=== PATIENT | male | born 1955 | race Caucasian/White ===

== ENCOUNTER 2016-06-18 10:59 | Day surgery (SDC) | payer OTHER ==
[2016-06-13 13:16] VITALS: BMI 24.3
[2016-06-18] MEDS ORDERED: MIDAZOLAM HCL 2 MG/2 ML SINGLE DOSE VIAL ONE (13:21)
[2016-06-18] MEDS ORDERED: HYDROmorphone HCL/PF 1 MG/ML VIAL (FOR PYXIS CHARGING ONLY) ONE (14:01)
[2016-06-18] MEDS ORDERED: ONDANSETRON 4 MG/2 ML VIAL IVPUSH PRN (15:28)
[2016-06-18] MEDS ORDERED: oxyCODONE HCL 5 MG TABLET PO PRN ×2 (15:28)
[2016-06-18] MEDS ORDERED: LACTATED RINGERS SOLUTION 1,000 ML IV SCH (15:30)
[2016-06-18] MEDS ORDERED: ONDANSETRON 4 MG/2 ML VIAL ONE (15:47)
[2016-06-18 16:37] VITALS: TEMP 97.8
[2016-06-18] MEDS ORDERED: oxyCODONE HCL 5 MG TABLET ONE (16:49)
[2016-06-18 17:08] VITALS: BP 142/65; PULSE 84
--- NOTE | 2016-06-19 17:47 | OP ---
DATE OF OPERATION: 06/18/2016 PREOPERATIVE DIAGNOSES: 1. Right distal triceps rupture. 2. Right olecranon bursitis with olecranon bone spurs. POSTOPERATIVE DIAGNOSES: 1. Right distal triceps rupture. 2. Right olecranon bursitis with olecranon bone spurs. OPERATIVE PROCEDURES: 1. Right distal triceps repair. 2. Right olecranon bursectomy and debridement of olecranon spurs. SURGEON: Mallory Chen MD FOREST RANGER TECHNICIAN: NATHANIEL Norton ANESTHESIA: General. COMPLICATIONS: None. ESTIMATED BLOOD LOSS: Minimal. INDICATIONS FOR PROCEDURE: The patient is a 61-year-old male with the above findings, indicated for operative treatment. Risks, benefits, and alternatives were discussed with the patient at length. Proper informed consent was obtained. DESCRIPTION OF PROCEDURE: After proper identification of the patient and the correct operative site, the patient was brought to the operating room and placed supine on the operating table. All prominences were well padded. General anesthesia was provided by the anesthesiologist. Intravenous antibiotics were given. A timeout procedure was performed. Patient was placed into the lateral decubitus position, in a carreno bag positioner with an axillary roll placed and all points of contact well padded. Inline cervical position was maintained throughout the procedure. Right upper extremity was prepped and draped in usual sterile fashion. A well-padded tourniquet was placed over a sterile prep. An Esmarch bandage was used to exsanguinate the right upper extremity. Tourniquet was inflated to 250 mmHg. A curvilinear incision was made over the dorsal aspect of the elbow. Incision was taken sharply through the skin with blunt and sharp dissection through subcutaneous tissues. An olecranon bursectomy was performed and bone spurs were removed off the olecranon process. A near-complete rupture of the distal triceps tendon was observed. Only a few fibers of the most lateral aspect of the triceps were attached and several deep fibers were also attached. The triceps had retracted several centimeters. It was easily reapproximated to the olecranon fossa and footprint of the triceps tendon. The tendon was then prepared by debriding it into healthy tissue. A triceps repair was then performed. This was accomplished by whip stitching two separate No. 2 FiberWire sutures up and down the distal triceps tendon in a locking fashion. This allowed for four distal strands of the FiberWire suture for repair. A shuttle suture was also passed in this same area. These sutures were all ending about 1 cm proximal to the distal aspect of the triceps tendon to accomplish a footprint-type repair. Two 2-mm drill holes were then placed from the footprint of the triceps tendon to the dorsal shaft of the ulna, taking care to keep these tunnels extraarticular. The sutures were then passed through the tunnels. The sutures were then re-looped through the triceps tendon, through the shuttle suture, and were allison-crossed at this point. This accomplished a footprint-type repair with approximately 1 cm of footprint of triceps attached to the insertion point. These sutures were then secured in a knotless fashion using a 4.7-mm SwiveLock anchor placed distal to the olecranon fossa and distal to the articular surface. This provided a secure, stable repair of the triceps tendon. The wound was irrigated with copious amounts of normal saline and repaired in layers using 3-0 Vicryl and skin carmen. Sterile dressings and a splint were placed. Patient was reversed from anesthesia and brought to recovery in stable condition. Armando Fuentes, the paraprofessional education assistant, was integral throughout this procedure. The procedure could not have been performed without a skilled operative paraprofessional education assistant. MALLORY CHEN M.D. [id number]
--- NOTE | 2016-06-20 16:17 | PATH ---
Surgical Pathology Report Patient Name: JULIO LEONG [facility]. Rec. #: [id number] /Age/Gender: 1955 (Age: 61) / M Account: [id number] Location: [facility] Taken: 06/18/2016 Received: 06/19/2016 Reported: 06/20/2016 Physicians: Chris Chen M.D. Specimen(s) Received OLECRANON BURSA RIGHT Clinical History Right elbow bursitis Final Diagnosis OLECRANON BURSA, RIGHT, BURSECTOMY: FIBROSYNOVIAL TISSUE SHOWING NECROSIS AND MARKED CHRONIC INFLAMMATION. Electronically Signed Chantelle Clarke M.D. Gross Description Received in formalin labeled "olecranon bursa right," is a 1.8 x 1.2 x 1.1 cm cho, irregular portion of soft tissue. The specimen is serially sectioned and entirely submitted in one cassette. /06/19/201606/19/2016
== END 2016-06-18 17:35 | disposition home or self-care (01) ==
LOC: FASU 10:59
PROVIDERS: ATTEND Orthopaedic Surgery Hand Surgery
PROC: 0LM30ZZ Reattachment of Right Upper Arm Tendon, Open Approach (ICD-10-PCS; principal; 2016-06-18 14:03)
PROC: 0MB30ZZ Excision of Right Elbow Bursa and Ligament, Open Approach (ICD-10-PCS; 2016-06-18 14:03)
DX: S46.311D Strain of muscle, fascia and tendon of triceps, right arm, subsequent encounter (principal); M70.21 Olecranon bursitis, right elbow; X58.XXXD Exposure to other specified factors, subsequent encounter; Y93.9 Activity, unspecified
CPT/HCPCS: 73070-TC-RT; 88304-TC; 94760

== ENCOUNTER 2019-01-16 08:03 | Emergency (ER) | payer OTHER ==
[2019-01-16 08:24] VITALS: BP 172/99; PULSE 93; TEMP 98; BMI 23.8
[2019-01-16 09:36] LABS: EPITHELIAL CELLS RARE /hpf
--- NOTE | 2019-01-16 09:54 | PDOC ---
History of Present Illness - General Chief Complaint: Urinary Problem Stated Complaint: BLOOD AFTER VOID Time Seen by Provider: 01/16/19 08:05 - History of Present Illness Initial Comments: 01/16/19 09:48 63-year-old male with no significant past medical history presents to the emergency department with hematuria. Patient reports noticing bright red blood in his urethra at the end of his urinary stream yesterday evening. He states he was holding it in for about 8 hours until he got home, and reports he was physically squeezing his penis at the time to prevent himself from having an accident. Once he arrived at home he was able to void in the kitchen sink. He reports his stream initially was normal and clear, but at the end he noted a few drops of bright red blood from his urethra. He also reported some burning and discomfort afterwards for a few hours. This morning when he woke up, he had another void, noted his urine to be lilo in color, also followed by a few drops of bright red blood in his urethra at the end of his stream, prompting him to come to the emergency department for further evaluation. Denies history of similar symptoms. He reports increased urgency when urinating since yesterday. He denies frequency. He denies fevers or chills. He denies any suprapubic or flank pain. Denies any recent unintended weight loss. He denies a history of smoking. Denies recent trauma to his penis. On review of systems, he denies any headaches, dizziness, focal weakness or numbness, chest pain, shortness of breath, abdominal pain, nausea, vomiting, diarrhea, lower extremity edema. He takes no medications on a daily basis. Past History - Past Medical History Allergies/Adverse Reactions: Allergies Allergy/AdvReac Type Severity Reaction Status Date / Time No Known Allergies Allergy Verified 01/16/19 08:04 Home Medications: Ambulatory Orders Sulfamethoxazole/Trimethoprim [Bactrim Ds Tablet] 1 each PO BID 14 Days #28 tablet 01/16/19 Anemia: No Asthma: No Cancer: No Cardiac Disorders: No CVA: No COPD: No CHF: No Dementia: No Diabetes: No GI Disorders: No Disorders: No HTN: No Hypercholesterolemia: No Liver Disease: No Seizures: No Thyroid Disease: No - Psycho Social/Smoking Cessation Hx Smoking History: Never smoked Have you smoked in the past 12 months: No Information on smoking cessation initiated: No Hx Alcohol Use: No Drug/Substance Use Hx: No Substance Use Type: None Hx Substance Use Treatment: No Review of Systems - Review of Systems Comments:: 01/16/19 09:54 GENERAL/CONSTITUTIONAL: No fever or chills. No weakness. HEAD, EYES, EARS, NOSE AND THROAT: No change in vision. No ear pain or discharge. No sore throat. GASTROINTESTINAL: No nausea, vomiting, diarrhea or constipation. GENITOURINARY: +dysuria, urgency, no frequency. +bleeding from urethra CARDIOVASCULAR: No chest pain or shortness of breath. RESPIRATORY: No cough, wheezing, or hemoptysis. MUSCULOSKELETAL: No joint or muscle swelling or pain. No neck or back pain. SKIN: No rash NEUROLOGIC: No headache, vertigo, loss of consciousness, or change in strength/ sensation. ENDOCRINE: No increased thirst. No abnormal weight change. HEMATOLOGIC/LYMPHATIC: No anemia, easy bleeding, or history of blood clots. ALLERGIC/IMMUNOLOGIC: No hives or skin allergy. *Physical Exam - Vital Signs Last Vital Signs Temp Pulse Resp BP Pulse Ox 98 F 93 H 20 172/99 H 100 01/16/19 08:04 01/16/19 08:04 01/16/19 08:04 01/16/19 08:04 01/16/19 08:04 - Physical Exam Comments: 01/16/19 09:54 GENERAL: Awake, alert, and fully oriented, in no acute distress EYES: PERRLA, EOMI, sclera anicteric, conjunctiva clear ENT: Moist mucosa NECK: Normal ROM, supple, no lymphadenopathy, JVD, or masses LUNGS: Breath sounds equal, clear to auscultation bilaterally. No wheezes, and no crackles HEART: Regular rate and rhythm, normal S1 and S2, no murmurs, rubs or gallops ABDOMEN: Soft, nontender, normoactive bowel sounds. No guarding, no rebound. No masses. No CVAT. : Normal external genitalia. No penile ttp. No injuries noted to penis or urethra. No blood at urethral meatus. No priapism or phimosis. EXTREMITIES: Normal range of motion, no edema. No cords, erythema, or tenderness NEUROLOGICAL: Normal speech, cranial nerves intact, equal strength and sensation b/l ED Treatment Course - ADDITIONAL ORDERS Additional order review: Laboratory Results 01/16/19 08:37 Urine Color Yellow Urine Appearance Slightly Urine pH 6.5 Urine Protein Trace Urine Glucose (UA) Negative Urine Ketones Negative Urine Blood 3+ H Urine Nitrite Negative Urine Bilirubin Negative Urine Urobilinogen 0.2 Ur Leukocyte Esterase Negative Urine RBC 40-60 Urine WBC 0-2 Ur Transition Epith Cell Rare Urine Bacteria Few Medical Decision Making - Medical Decision Making 01/16/19 09:56 63-year-old male presents the emergency department with hematuria at the end of his urinary stream accompanied with urgency and dysuria. Clinically presentation is most consistent with a UTI, as such we will treat with Bactrim twice a day for 14 days. After initial void for which a urinalysis was sent in the emergency department, patient had another void which he states was clear without bleeding at the end of his urinary stream. Either way, given complicated UTI, will refer pt to urology for further evaluation. Discussed with pt that he may need cystoscopy, especially if bleeding persists to r/o cancerous mass. Pt expresses understanding I discussed the physical exam findings, ancillary test results and final diagnoses with the patient. I answered all of the patient's questions. The patient was satisfied with the care received and felt comfortable with the discharge plan and treatment plan. The patient will call their primary care physician within 24 hours to arrange follow-up and will return to the Emergency Department with any new, persistent or worsening symptoms. Discharge - Discharge Information Problems reviewed: Yes Clinical Impression/Diagnosis: UTI symptoms, Hematuria, Urinary urgency Condition: Stable Disposition: HOME - Admission No - Additional Discharge Information Prescriptions: Sulfamethoxazole/Trimethoprim [Bactrim Ds Tablet] 1 each PO BID 14 Days #28 tablet - Follow up/Referral Referrals: Mohan Watkins MD [Staff Physician] - Joe Villar MD [Staff Physician] - Ari Lucero MD [Staff Physician] - - Patient Discharge Instructions Patient Printed Discharge Instructions: DI for Hematuria Additional Instructions: Take the antibiotics as prescribed, twice a day. A referral has been included for a urologist for follow-up. Call tomorrow to make an appointment within 1 week. Return to emergency department if you have any new, worsening or concerning symptoms. - Post Discharge Activity
== END 2019-01-16 10:04 | disposition home or self-care (01) ==
LOC: FER 08:03
DX: R39.15 Urgency of urination (principal); R31.9 Hematuria, unspecified; R68.89 Other general symptoms and signs
CPT/HCPCS: 81003; 81015; 87086; 99282-25

== ENCOUNTER 2019-01-27 10:11 | Day surgery (SDC) | payer OTHER ==
[2019-01-24 15:55] VITALS: BMI 24.0
[~2019-01-27 10:11] MED LIST: BUPIVACAINE HCL/PF 0.25% (2.5MG/ML) 10 ML VIAL IJ ONE
--- NOTE | 2019-01-27 10:20 | OP ---
Operative Note - Note: Operative Date: 01/27/19 Pre-Operative Diagnosis: Elbow bursitis ? Post-Operative Diagnosis: Same as Pre-op Surgeon: Fredrick De La Fuente Fly Finisher: Mindy Jaffe Anesthesia: General Operative Report Dictated: Yes
[2019-01-27] MEDS ORDERED: MIDAZOLAM HCL 2 MG/2 ML SINGLE DOSE VIAL ONE (13:07)
[2019-01-27] MEDS ORDERED: PROPOFOL 20 ML ONE ×2 (13:08→13:21)
[2019-01-27] MEDS ORDERED: ePHEDrine SULFATE 50 MG/1 ML AMPULE ONE (13:27)
[2019-01-27] MEDS ORDERED: GLYCOPYRROLATE 0.2 MG/1 ML VIAL ONE (13:31)
[2019-01-27] MEDS ORDERED: oxyCODONE HCL 5 MG TABLET PO PRN ×2 (13:54)
[2019-01-27] MEDS ORDERED: ONDANSETRON 4 MG/2 ML VIAL IVPUSH PRN (13:54)
[2019-01-27] MEDS ORDERED: ACETAMINOPHEN 325 MG TABLET (FP) PO PRN (13:54)
[2019-01-27] MEDS ORDERED: LACTATED RINGERS SOLUTION 1,000 ML IV SCH (14:00)
[2019-01-27] MEDS ORDERED: BUPIVACAINE HCL 0.25% 125 MG/50 ML VIAL ONE (14:13)
[2019-01-27] MEDS ORDERED: ONDANSETRON 4 MG/2 ML VIAL ONE (14:42)
[2019-01-27] MEDS ORDERED: KETOROLAC TROMETHAMINE 30 MG/1 ML VIAL ONE (14:42)
[2019-01-27] MEDS ORDERED: DEXAMETHASONE SOD PHOSPHATE 4 MG/1 ML VIAL ONE (14:42)
[2019-01-27] MEDS ORDERED: ACETAMINOPHEN 325 MG TABLET (FP) ONE (16:23)
[2019-01-27 17:17] VITALS: TEMP 97.6
[2019-01-27 18:51] VITALS: BP 133/82; PULSE 108
--- NOTE | 2019-01-27 18:51 | OP ---
DATE OF OPERATION: 01/27/2019 PREOPERATIVE DIAGNOSIS: Right elbow infectious bursitis. POSTOPERATIVE DIAGNOSIS: Right elbow likely osteomyelitis, infected bursitis versus sterile abscess. PROCEDURE: Right elbow irrigation and debridement, decompression of bone cyst, excision of deep implants, bone and soft tissue cultures. INDICATIONS: This is a 63-year-old gentleman who had previously underwent distal triceps repair. He has had multiple episodes of draining sinus from his left elbow and was indicated for surgical debridement. He had declined for some time as he was unable to take off from work but eventually decided to go ahead with surgery. Treatment options including continued nonoperative car versus operative care were reviewed. Operative risks were reviewed in detail including bleeding, persistent or spread infection, need for further surgery, postoperative pain and stiffness, triceps re-rupture or elbow fracture. We discussed medical risks such as heart attack, stroke, DVT, PE, and . We discussed that we would keep him on antibiotics following the procedure and adjust those based on his culture results. I addressed all of the patient's questions and concerns. He voiced understanding and elected to proceed. DESCRIPTION OF PROCEDURE: The patient was brought to the operating room where general anesthesia was administered. He was placed into a lazy lateral position at approximately 30 degrees of tilt to allow for access to the posterior elbow. The elbow was then draped across the body. The patient was then prepped and draped in the usual sterile fashion. A preoperative dose of antibiotics was given, and the usual time-out procedure was performed. On initial inspection of the elbow, there were 4 areas of either currently draining or previously draining sinus noted, 3 in the midportion of the olecranon region and 1 of them in line with the previous wound. Incision was now planned out along the previous operative incision ellipsing out the main sinus tract along the . This was sent for pathologic analysis. Electrocautery was used to maintain hemostasis. Blunt spreading was now carried down. The sinus over the wound tracked down to an area on the olecranon where a suture was seen to be inserting. This was debrided using a curette, rongeur as well as electrocautery. This was traced down to the entrance to the anchor hole. The suture was able to be pulled out of the anchor hole. This was along with 3 other suture ends. The peak portion of the anchor was now removed from the wound along with a collection of chalky, white liquid. Culture of this area was sent. Curettes including angled curettes were now passed throughout the cavity to ensure no further debris. Dissection was carried out more proximally, tracing along where the sutures were travelling. Sutures were identified travelling into the bone. They were then reidentified along the posterior aspect of the triceps and were in whipstitch fashion albeit buried under layers of scar tissue. Utilizing careful spreading dissection, the suture was freed of the surrounding soft tissue until all of the limbs of the suture were able to be fully removed from the patient. The dissection was now carried out along the bursa posteriorly over the olecranon. As the sinus tracts of the additional areas were encountered, the subcutaneous tissue was found to be quite friable. Small areas had to be excised due to the nonviability of the skin full thickness. After this debridement, as the skin was being retracted, 1 of the sinuses tore about the area by approximately 1.5 cm. This would be later repaired. The dissection was now carried further medially, more proximally where a firm nodule was palpable approximately 3 cm around the subcutaneous region. After spreading into this area, an additional pocket of somewhat chalky and purulent fluid was encountered. This too was evacuated. A rongeur was used to remove some of the lining to this collection. Again, cultures were sent from here. Cultures were also sent from the mid bursal portion where the sinus tracts were. Cultures were additionally sent from the area of the triceps where the sutures were passed. The wound was now copiously pulse lavaged including the bony cavity with 6 L of saline with bacitracin. The sinus tracts were now debrided and then closed using 4 nylon interrupted sutures. Despite their close proximity to the main portion of the wound, there did appear to be good circulation within the skin of these areas. The main wound was then closed using combination of mattress and simple 4-0 nylon suture. The patient was then placed into a well-padded splint in approximately 45 degrees of flexion. The patient was then extubated and transferred to recovery room in stable condition. JERAMIE DIXON M.D. [id number]
--- NOTE | 2019-02-07 11:42 | PATH ---
Surgical Pathology Report Patient Name: JULIO LEONG Med. Rec. #: [id number] /Age/Gender: 1955 (Age: 63) / M Account: [id number] Location: [facility] Taken: 01/27/2019 Received: 01/27/2019 Reported: 02/07/2019 Physicians: Fredrick De La Fuente M.D. Specimen(s) Received A: SINUS TRACT, RIGHT ELBOW B: EXPLANTED HARDWARE, RIGHT ELBOW Clinical History Right elbow bursitis Final Diagnosis A. SINUS TRACT, RIGHT ELBOW, EXCISION: PORTION OF SKIN SHOWING CYSTIS SPACE IN THE DERMIS WITH ACUTE AND CHRONIC INFLAMMATION AND MARKED HISTIOCYTIC REACTION INCLUDING MULTINUCLEATED GIANT CELLS, FOCALLY LINED BY SQUAMOUS EPITHELIUM. AFB AND PAS STAINS ARE NEGATIVE FOR MICROORGANISMS. B. EXPLANTED HARDWARE RIGHT ELBOW, REMOVAL: CONSISTENT WITH HARDWARE. GROSS EXAMINATION Electronically Signed Uche Soares M.D. Gross Description A. Received in formalin labeled "sinus tract right elbow," is a 0.9 x 0.5 x 0.4 cm cho, irregular, unoriented portion of skin. The epidermal surface displays a focal defect. The specimen is trisected and entirely submitted in one cassette. B. Received fresh labeled "explanted hardware right elbow," is a 0.7 x 0.2 x 0.2 cm cho, plastic foreign body. Also received within the same container are 3 portions of suture material ranging from 6.0-43.5 cm in length. No soft tissue is present. No sections are submitted, gross only. 01/31/2019 saudi01/31/2019
== END 2019-01-27 18:52 | disposition home or self-care (01) ==
LOC: FASU 10:11
PROVIDERS: ATTEND Orthopaedic Surgery Sports Medicine
PROC: 0RPL04Z Removal of Internal Fixation Device from Right Elbow Joint, Open Approach (ICD-10-PCS; 2019-01-27)
PROC: 0PBK0ZZ Excision of Right Ulna, Open Approach (ICD-10-PCS; principal; 2019-01-27 13:44)
DX: M71.121 Other infective bursitis, right elbow (principal); M85.621 Other cyst of bone, right upper arm
CPT/HCPCS: 87070; 87102; 87205; 87210; 88300-TC; 88304-TC; 88312-TC; 94760

== ENCOUNTER 2019-03-10 16:20 | Inpatient (IN) | payer OTHER ==
--- NOTE | 2019-03-10 16:56 | PDOC ---
Attending Attestation - Resident Resident Name: Matthew Mirza - ED Attending Attestation I have performed the following: I have examined & evaluated the patient, The case was reviewed & discussed with the resident, I agree w/resident's findings & plan, Exceptions are as noted - HPI HPI: 03/10/19 16:58 Abdominal pain x1 week. Right lower quadrant. Intermittent constipation but had a normal bowel movement this morning No nausea vomiting or diarrhea. No fever or chills. No body aches, myalgias, malaise, or fatigue. Appetite is good. Eating normally, however he did not eat today because he had an appointment with his doctor to address his pain. Visit with primary physician today, Dr. Winters, who sent him to [place] for CT and blood work. The CT showed right lower quadrant inflammation, possible ruptured appendix with organizing abscess. He was therefore referred to the emergency room for further evaluation. Past medical history: Kidney stone several years ago, passed spontaneously, infection of the right elbow that required debridement by orthopedist, was on prolonged Bactrim therapy for 6 weeks, finished approximately 2 weeks ago. Social history: No tobacco alcohol or nonprescription drugs. 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 Excellent physical condition 03/10/19 17:28 - Physicial Exam PE: 03/10/19 17:24 Alert oriented well-developed well-nourished no acute distress cooperative Afebrile, vital signs normal No pallor or icterus. PERRLA, conjunctivae, ENT clear Neck supple without bruit mass or nodes Chest clear with bilateral breath sounds symmetric, no wheezes rales or rhonchi CV S1-S2 normal without murmur rub or gallop pulses full and symmetric no JVD or edema no bruits 60 and regular Abdomen nondistended. Bowel sounds normal. Soft without mass or organomegaly. There is mild tenderness to deep palpation in the right lower quadrant, but no suggestion of guarding or rebound. There is no CVAT Neurological intact Skin clear, no rash, adequate turgor and wet mucous membranes Extremities no CCE - Medical Decision Making 03/10/19 17:25 Assessment: 1 week history of abdominal pain, which is mild. Right lower quadrant tenderness on physical exam, but this is minimal. CAT scan shows possible organizing abscess in the area of the appendix, presumed chronic appendicitis/rupture. Plan: Dr. Franco, surgery consult, was contacted by phone. He reviewed the scan. He recommended antibiotics and drainage by interventional radiology. Dr. Hallman, interventional radiologist was contacted by phone. He viewed the scan. He agreed that percutaneous drainage was indicated, and will perform the procedure tomorrow morning. He does not think that repeating the scan with oral or intravenous contrast is necessary tonight. The patient will be admitted, antibiotics will be begun, Dr. Franco will see the patient tomorrow, and Dr. Hallman will perform the percutaneous drainage. Depending on the results of the procedure, further plan for care will be formulated. 03/10/19 17:30 03/10/19 18:41 Chest x-ray is clear EKG is normal except for a Q wave in lead III, which may be a septal Q. No ST- T wave changes Lab work performed earlier today as an outpatient showed normal CBC and chemistries. 03/10/19 18:43 Urinalysis with 2+ blood, probably the result of the urinary tract calculi. No evidence of infection.
--- NOTE | 2019-03-10 17:24 | PN ---
Progress Note (short form) - Note Progress Note: surgery 64m sent to [facility] ER with ct showing rlq phlegmon/collection. pain for several days. likely perforated appendicitis with developing abscess. needs labs. repeat ct with oral and iv contrast. IR eval for drainage of collection. needs admission with minimum 5 days iv abx, preferably zosyn. full eval to follow.
[2019-03-10] MEDS ORDERED: PIPERACILLIN/TAZOB 3.375 GM 3.375 GM in DEXTROSE 5%-WATER - 50 ML IVPB ONE (17:31)
[2019-03-10] MEDS ORDERED: PIPERACILLIN/TAZOBACTAM 3.375 GM VIAL IVPB ONE (17:37)
--- NOTE | 2019-03-10 18:08 | PDOC ---
History of Present Illness - General Chief Complaint: Pain Stated Complaint: RLQ PAIN Time Seen by Provider: 03/10/19 16:26 - History of Present Illness Initial Comments: 03/10/19 21:44 64M w/o PMH sent in by PCP for one week of right midaxillary flank pain that was on/off in nature and nonradiating. Denies fevers, chills, nausea, vomiting. Denies urinary symptoms. Denies chest pain, shortness of breath. PCP had sent patient to [facility] for CT and labs. CT found RLQ abscess and renal stone without hydronephrosis. UA W/O infection. Patient sent to ED for further evaluation, currently asymptomatic Past History - Past Medical History Allergies/Adverse Reactions: Allergies Allergy/AdvReac Type Severity Reaction Status Date / Time No Known Allergies Allergy Verified 03/10/19 16:23 Home Medications: Ambulatory Orders NK [No Known Home Medication] 03/10/19 Anemia: No Asthma: No Cancer: No Cardiac Disorders: No CVA: No COPD: No CHF: No Dementia: No Diabetes: No GI Disorders: No Disorders: Yes (Dx UTI 01/16-started Bactrim,renal stone) HTN: No Hypercholesterolemia: No Liver Disease: No Seizures: No Thyroid Disease: No Other medical history: BURSITIS RIGTH ELBOW - Surgical History Abdominal Surgery: No Appendectomy: No Cardiac Surgery: No Cholecystectomy: No Lung Surgery: No Neurologic Surgery: No Orthopedic Surgery: Yes (Repair of Right Tricep) - Psycho Social/Smoking Cessation Hx Smoking History: Never smoked Have you smoked in the past 12 months: No Hx Alcohol Use: No Drug/Substance Use Hx: No Substance Use Type: None Hx Substance Use Treatment: No Review of Systems - Review of Systems Comments:: 03/10/19 21:44 CONSTITUTIONAL: Denies F / C HEENT: Denies headache RESP: Denies SOB, cough CARD: Denies chest pain GI: Endorses occasional mid-axillary right flank pain. Denies N / V / D, bloody stool, inability to tolerate PO : Denies dysuria, hematuria, frequency SKIN: Denies rashes MSK: Denies back pain *Physical Exam - Vital Signs Last Vital Signs Temp Pulse Resp BP Pulse Ox 97.9 F 93 H 19 133/89 98 03/10/19 16:21 03/10/19 16:21 03/10/19 16:21 03/10/19 16:21 03/10/19 16:21 - Physical Exam 03/10/19 21:44 GEN: NAD, comfortable. AAOx3 HEENT: NC/AT. No facial asymmetry. Normal voice. Supple neck w/ FROM. CV: S1/S2, RRR, no m/r/g LUNG: CTAB, no wheezes, crackles, rales, rhonchi. GI: soft, ndnt, +BS, no guarding, no rebound. No masses. EXTREMITIES: No obvious deformities of all extremities. SKIN: warm, dry, normal turgor PSYCH: normal mood and affect NEURO: Moving all extremities well. Ambulates w/ normal gait. ED Treatment Course - ADDITIONAL ORDERS Additional order review: Laboratory Results 03/10/19 17:00 Urine Color Yellow Urine Appearance Clear Urine pH 5.5 Urine Protein Negative Urine Glucose (UA) Negative Urine Ketones Negative Urine Blood 2+ H Urine Nitrite Negative Urine Bilirubin Negative Urine Urobilinogen 0.2 Ur Leukocyte Esterase Negative - Medications Given in the ED: ED Medications Discontinued Medications Generic Name Dose Route Start Last Admin Trade Name Freq PRN Reason Stop Dose Admin Piperacillin Sod/Tazobactam 50 mls @ 100 mls/hr 03/10/19 17:31 03/10/19 17:44 Sod 3.375 gm/ Dextrose IVPB 03/10/19 18:00 100 mls/hr ONCE ONE Administration Protocol Medical Decision Making - Medical Decision Making 03/10/19 18:06 64M sent in by PCP with CT findings of RLQ abscess in the setting of a week of right midaxillary flank pain. DDX includes appendicitis, periappendiceal abscess, renal stone, pyelonephritis , renal abscess - obtain pre-op labs - surgery C/S - empiric ABX ED team d/w Dr. Franco and Dr. Keane; no surgical intervention at this time, admit to [facility], IV ABx, IR draining of abscess tomorrow ED team d/w PCP and pt - both amenable to plan endorsed to hospitalist team // ADMITTED Discharge - Discharge Information Problems reviewed: Yes Clinical Impression/Diagnosis: Abdominal abscess Condition: Stable - Admission Yes - Follow up/Referral - Patient Discharge Instructions - Post Discharge Activity
--- NOTE | 2019-03-10 18:25 | HP ---
CHIEF COMPLAINT: Abdominal pain x 1 week PCP: Dr. Winters HISTORY OF PRESENT ILLNESS: 64 year-old male with no significant PMH presented to the ED for evaluation of intermittent right lower quadrant abdominal pain x 1 week. Some constipation but had normal BM this morning. Denies fever, sweats, chills, no nausea, vomiting, or diarrhea. Went to see his PCP earlier today who sent him for a CT scan. The scan showed RLQ inflammation, possible ruptured appendix with organizing abscess. Patient was referred to the ED for further evaluation. ER course was notable for: (1) afebrile, no leukocytosis (2) CTAP: developing periappendiceal abscess/acute appendicitis (3) Zosyn x 1 Recent Travel: No PAST MEDICAL HISTORY: Kidney stone Right elbow infectious bursitis PAST SURGICAL HISTORY: Tricep surgery w/clips 2017 Right elbow I&D and explantation of clips 01/27/19 Social History: personal fitness manager Smoking: never Alcohol: no Drugs: no Family history: non-contributory Allergies No Known Allergies Allergy (Verified 03/10/19 16:23) HOME MEDICATIONS: Home Medications Medication Instructions Recorded NK [No Known Home Medication] 03/10/19 REVIEW OF SYSTEMS CONSTITUTIONAL: Absent: fever, chills, diaphoresis, generalized weakness, malaise, loss of appetite, weight change HEENT: Absent: rhinorrhea, nasal congestion, throat pain, throat swelling, difficulty swallowing, mouth swelling, ear pain, eye pain, visual changes CARDIOVASCULAR: Absent: chest pain, syncope, palpitations, irregular heart rate, lightheadedness , peripheral edema RESPIRATORY: Absent: cough, shortness of breath, dyspnea with exertion, orthopnea, wheezing, stridor, hemoptysis GASTROINTESTINAL: +RLQ abdominal pain Absent: abdominal pain, abdominal distension, nausea, vomiting, diarrhea, constipation, melena, hematochezia GENITOURINARY: Absent: dysuria, frequency, urgency, hesitancy, hematuria, flank pain, genital pain MUSCULOSKELETAL: Absent: myalgia, arthralgia, joint swelling, back pain, neck pain SKIN: Absent: rash, itching, pallor HEMATOLOGIC/IMMUNOLOGIC: Absent: easy bleeding, easy bruising, lymphadenopathy, frequent infections ENDOCRINE: Absent: unexplained weight gain, unexplained weight loss, heat intolerance, cold intolerance NEUROLOGIC: Absent: headache, focal weakness or paresthesias, dizziness, unsteady gait, seizure, mental status changes, bladder or bowel incontinence PSYCHIATRIC: Absent: anxiety, depression, suicidal or homicidal ideation, hallucinations. PHYSICAL EXAMINATION Vital Signs - 24 hr 03/10/19 16:21 Temperature 97.9 F Pulse Rate 93 H Respiratory 19 Rate Blood Pressure 133/89 O2 Sat by Pulse 98 Oximetry (%) GENERAL: Awake, alert, and fully oriented, in no acute distress. HEAD: Normal with no signs of trauma. EYES: Pupils equal, round and reactive to light, extraocular movements intact, sclera anicteric, conjunctiva clear. LUNGS: Breath sounds equal, clear to auscultation bilaterally. No wheezes, and no crackles. No accessory muscle use. HEART: Regular rate and rhythm, normal S1 and S2 ABDOMEN: Mild RLQ tenderness UPPER EXTREMITIES: 2+ pulses, warm, well-perfused. No cyanosis. No clubbing. No peripheral edema. LOWER EXTREMITIES: 2+ pulses, warm, well-perfused. No calf tenderness. No peripheral edema. NEUROLOGICAL: Cranial nerves II-XII intact. Normal speech. Normal gait. SKIN: Warm, dry, normal turgor Laboratory Results - last 24 hr 03/10/19 17:00 Urine Color Yellow Urine Appearance Clear Urine pH 5.5 Urine Protein Negative Urine Glucose (UA) Negative Urine Ketones Negative Urine Blood 2+ H Urine Nitrite Negative Urine Bilirubin Negative Urine Urobilinogen 0.2 Ur Leukocyte Esterase Negative ASSESSMENT/PLAN 64 year-old male with no significant PMH admitted for likely periappendiceal abscess/acute appendicitis. Acute appendicitis Periappendiceal abscess --1/2 CTAP: 3.7 x 3.3 x 4.3 mass RLQ most likely developing abscess/acute appendicitis --start Zosyn --IV fluids --NPO --plan is to IR in am for perc drainage --surgery Dr. Franco following --ID consult placed Bilateral nephrolithiais Mild right-sided hydronephrosis --10mm calcification proximal right ureter, partially obstructing with minimal right-sided hydronephrosis --renal function stable, monitor closely --consider urology consult when more stable or if renal function deteriorates FEN Fluids: D51/2 @ 125mL/hr Electrolytes: replete as indicated Nutrition: NPO DVT prophylaxis: SCDs Dispo: requires inpatient care. Full code. Visit type - Emergency Visit Emergency Visit: Yes ED Registration Date: 03/10/19 Care time: The patient presented to the Emergency Department on the above date and was hospitalized for further evaluation of their emergent condition. - New Patient This patient is new to me today: Yes Date on this admission: 03/10/19 - Critical Care Critical Care patient: No
[2019-03-10] MEDS ORDERED: SODIUM CHLORIDE 0.9% 500 ML INFUS.BAG IV ONE (19:01)
[2019-03-10] MEDS ORDERED: ACETAMINOPHEN INJECTION 100 ML IVPB ONE (19:06)
[2019-03-10] MEDS: DEXTROSE 5%-0.45% SALINE 1,000 ML IV SCH (19:09)
[2019-03-10] MEDS: ACETAMINOPHEN 1000 MG/100 ML VIAL (NON FORMULARY) IVPB SCH (19:09)
[2019-03-10 19:45] LABS: INR 1.39 (0.82-1.09); PROTHROMBIN TIME (PATIENT) 15.5 SEC (10.2-13.0)
[2019-03-10 20:44] VITALS: BMI 22.8
[2019-03-10] MEDS: PANTOPRAZOLE SODIUM 40 MG VIAL IVPUSH SCH (20:59)
[2019-03-11] MEDS: ACETAMINOPHEN 1000 MG/100 ML VIAL (NON FORMULARY) IVPB SCH ×3 (00:38→16:27)
[2019-03-11] MEDS ORDERED: PIPERACILLIN/TAZOBACTAM 3.375 GM VIAL IVPB ONE ×2 (01:53→16:24)
[2019-03-11] MEDS ORDERED: DEXTROSE 5%-WATER - 50 ML IVPB ONE ×2 (01:53→16:24)
[2019-03-11] MEDS ORDERED: PIPERACILLIN/TAZOB 3.375 GM 3.375 GM in DEXTROSE 5%-WATER - 50 ML IVPB SCH ×3 (02:00→18:00)
[2019-03-11 07:44] LABS: BASO % 0.5 % (0-2.0); EOS % 4.6 % (0-4.5); HEMATOCRIT 38.8 % (35.4-49); HEMOGLOBIN 12.7 GM/dl (11.7-16.9); LYMPH % 15.9 % (8-40); MCH 28.9 pg (25.7-33.7); MCHC 32.6 g/dl (32.0-35.9); MEAN CELL VOLUME 88.5 fl (80-96); MEAN PLT VOLUME 6.8 fl (7.5-11.1); MONO % 11.5 % (3.8-10.2); NEUT % 67.5 % (42.8-82.8); PLATELET COUNT 302 K/MM3 (134-434); RBC 4.39 M/mm3 (4.00-5.60); RDW 12.1 % (11.9-15.9); WHITE BLOOD COUNT 4.7 K/mm3 (4.0-10.8)
[2019-03-11 08:07] LABS: ALBUMIN 2.8 g/dl (3.4-5.0); BILIRUBIN,TOTAL 1.1 mg/dl (0.2-1); CALCIUM 8.3 mg/dl (8.5-10); CREATININE 0.7 mg/dl (0.55-1.3); POTASSIUM 3.7 mmol/L (3.5-5.1); TOT PROT 5.6 g/dl (6.4-8.2)
--- NOTE | 2019-03-11 09:47 | PN ---
Progress Note (short form) - Note Progress Note: ID CONSULT DICTATED RLQ PHLEGMON/PROBABLE DEVELOPING ABSCESS ? ETIOLOGY ?APPENDICEAL ABSCESS ? DIVERTICULAR ABSCESS ? NEOPLASTIC BC OBTAINED FOR IR DRAINAGE, CULTURES EMPIRIC ZOSYN SURGICAL F/U
--- NOTE | 2019-03-11 11:24 | CONS ---
DATE OF CONSULTATION: DATE OF DICTATION: 03/11/2019 HISTORY OF PRESENT ILLNESS: The patient is a 64-year-old male who was evaluated for possible appendiceal abscess. The chart was reviewed, patient examined and CAT scan reviewed with the radiologist. He presented with a 1-week history of abdominal pain. He was admitted on March 10, 2019. He reports approximately one week ago he had eaten some [place] food; subsequently he developed right lower quadrant discomfort. He described the pain as a soreness and an ache. He denied any sharp pain. It was localized to the right lower quadrant. It persisted over the next week. He presented to his primary care physician where he was prescribed Augmentin. He continued to have symptoms and was referred as an outpatient for a CAT scan. CAT scan of the abdomen and pelvis shows a phlegmon and possible early abscess in the right lower quadrant at the base of the appendix. The appendix was not visualized. At the present time he is awake and alert. He is comfortable. He has no complaints of pain. He has had no nausea, vomiting. He has had regular bowel movements. No rectal bleeding. No associated fever or chills. PAST MEDICAL HISTORY: Positive for nephrolithiasis. He also had a history of a right elbow infection. Approximately 2 years ago he had a repair of a tendon in the right elbow with some foreign material placed. He began to develop discomfort in January and was treated as an outpatient with Bactrim for 6 weeks. He completed that course of therapy approximately 2 to 3 weeks ago. Cultures were all negative including fungal cultures. His elbow symptoms have resolved and his wound is completely healed. ALLERGIES: No known allergies. LABORATORY DATA: White count 4.7, hematocrit 38.8, platelet count 302. Creatinine 0.7. Urinalysis: 0 to 2 white cells. Blood and urine cultures are pending. Chest x-ray negative. PHYSICAL EXAMINATION: General: He was awake and alert. He is comfortable. He is seated in bed in no acute distress. Vitals: Temperature 97.7, blood pressure 133/70, pulse 87 regular, respirations 18 per minute. HEENT: Sclera anicteric. Heart: Sounds S1, S2. Lungs: Clear. Abdomen: Positive bowel sounds. Abdomen is soft. There was no tenderness elicited, no right lower quadrant tenderness, rebound or rigidity. Extremities: Negative for edema. IMPRESSION: Right lower quadrant phlegmon/probable developing abscess of unclear etiology. RECOMMENDATIONS: Patient is asymptomatic at this time. CAT scan was reviewed with the radiologist, whose opinion is that the findings appear chronic in nature and may represent an old abscess, versus a necrotic mass in the cecal area. There is no clear evidence of acute appendicitis or appendiceal abscess. Blood cultures have been obtained. He will have a drainage of this collection and possible biopsy by Interventional Radiology with cultures and cytology. I will continue empiric Zosyn. Surgical follow up. Will likely require a colonoscopy and close surgical follow up to rule out an occult colonic malignancy. Will follow. Thank you for the kind referral. JULIETTE GATES M.D. [id number]
[2019-03-11] MEDS ORDERED: MIDAZOLAM HCL 2 MG/2 ML SINGLE DOSE VIAL IVPUSH ONE (13:00)
--- NOTE | 2019-03-11 13:26 | EKG ---
Test Reason : Blood Pressure : / mmHG Vent. Rate : 084 BPM Atrial Rate : 084 BPM P-R Int : 186 ms QRS Dur : 088 ms QT Int : 376 ms P-R-T Axes : 057 060 017 degrees QTc Int : 444 ms NORMAL SINUS RHYTHM CANNOT RULE OUT INFERIOR INFARCT , AGE UNDETERMINED ABNORMAL ECG NO PREVIOUS ECGS AVAILABLE Confirmed by SHAUNA NGUYEN MD ([id number]) on 03/11/2019 1:26:12 PM Referred By: DR MOSS Confirmed By:SHAUNA NGUYEN MD
[2019-03-11] MEDS: PANTOPRAZOLE SODIUM 40 MG VIAL IVPUSH SCH (16:26)
[2019-03-11] MEDS: PIPERACILLIN/TAZOB 3.375 GM 3.375 GM in DEXTROSE 5%-WATER - 50 ML IVPB SCH (16:26)
--- NOTE | 2019-03-11 17:10 | PN ---
Documentation entered by Raquel King SCRIBE, acting as scribe for Kassi Davis NP. Physical Exam: SUBJECTIVE: Patient seen and examined at bedside. Back from IR. OBJECTIVE: Vital Signs Period Temp Pulse Resp BP Sys/Liang Pulse Ox Last 24 Hr 97.7 F-98.5 F 57-93 18-19 120-161/66-89 97-98 GENERAL: Awake, alert, and fully oriented, in no acute distress. LUNGS: Breath sounds equal, clear to auscultation bilaterally. No wheezes, and no crackles. No accessory muscle use. HEART: Regular rate and rhythm, normal S1 and S2 ABDOMEN: RLQ drain, scant serosanguinous fluid in JUAN UPPER EXTREMITIES: 2+ pulses, warm, well-perfused. No cyanosis. No clubbing. No peripheral edema. LOWER EXTREMITIES: 2+ pulses, warm, well-perfused. No calf tenderness. No peripheral edema. NEUROLOGICAL: Cranial nerves II-XII intact. Normal speech. Normal gait. SKIN: Warm, dry, normal turgor Laboratory Results - last 24 hr 03/10/19 03/10/19 03/10/19 17:00 17:30 17:30 WBC RBC Hgb Hct MCV MCH MCHC RDW Plt Count MPV Absolute Neuts (auto) Neutrophils % Lymphocytes % Monocytes % Eosinophils % Basophils % PT with INR INR PTT (Actin FS) 31.4 Sodium Potassium Chloride Carbon Dioxide Anion Gap BUN Creatinine Est GFR (CKD-EPI)AfAm Est GFR (CKD-EPI)NonAf Random Glucose Calcium Magnesium Total Bilirubin AST ALT Alkaline Phosphatase Total Protein Albumin Urine Color Yellow Urine Appearance Clear Urine pH 5.5 Urine Protein Negative Urine Glucose (UA) Negative Urine Ketones Negative Urine Blood 2+ H Urine Nitrite Negative Urine Bilirubin Negative Urine Urobilinogen 0.2 Ur Leukocyte Esterase Negative Urine RBC 5-10 Urine WBC 0-2 Blood Type A POSITIVE Antibody Screen Negative 03/10/19 03/11/19 03/11/19 17:30 06:52 06:52 WBC 4.7 RBC 4.39 Hgb 12.7 Hct 38.8 MCV 88.5 MCH 28.9 MCHC 32.6 RDW 12.1 Plt Count 302 MPV 6.8 L Absolute Neuts (auto) 3.2 Neutrophils % 67.5 Lymphocytes % 15.9 Monocytes % 11.5 H Eosinophils % 4.6 H Basophils % 0.5 PT with INR 15.5 H INR 1.39 H PTT (Actin FS) Sodium 134 L Potassium 3.7 Chloride 102 Carbon Dioxide 24 Anion Gap 8 BUN 11.0 Creatinine 0.7 Est GFR (CKD-EPI)AfAm 114.78 Est GFR (CKD-EPI)NonAf 99.03 Random Glucose 109 H Calcium 8.3 L Magnesium 2.0 Total Bilirubin 1.1 H AST 26 ALT 31 Alkaline Phosphatase 80 D Total Protein 5.6 L Albumin 2.8 L Urine Color Urine Appearance Urine pH Urine Protein Urine Glucose (UA) Urine Ketones Urine Blood Urine Nitrite Urine Bilirubin Urine Urobilinogen Ur Leukocyte Esterase Urine RBC Urine WBC Blood Type Antibody Screen Active Medications Generic Name Dose Route Start Last Admin Trade Name Freq PRN Reason Stop Dose Admin Acetaminophen 1,000 mg 03/10/19 18:45 03/11/19 06:33 Ofirmev Injection - IVPB 03/11/19 12:46 1,000 mg Q6H DINAH Administration Dextrose/Sodium Chloride 1,000 mls @ 125 mls/hr 03/10/19 18:30 03/10/19 19:09 D5-1/2ns - IV 125 mls/hr ASDIR DINAH Administration Piperacillin Sod/Tazobactam 50 mls @ 100 mls/hr 03/11/19 10:00 Sod 3.375 gm/ Dextrose IVPB Q8H-IV DINAH Protocol Pantoprazole Sodium 40 mg 03/10/19 18:45 03/10/19 20:59 Protonix Iv IVPUSH 40 mg DAILY DINAH Administration ASSESSMENT/PLAN: 64 year-old male with no significant PMH admitted for likely periappendiceal abscess. Periappendiceal abscess --1/2 CTAP: 3.7 x 3.3 x 4.3 mass RLQ --percutaneous drain placed today by IR; flush and record output q8h --continue Zosyn (day #2) --surgery Dr. Franco following --ID following --IR following Bilateral nephrolithiais Mild right-sided hydronephrosis --10mm calcification proximal right ureter, partially obstructing with minimal right-sided hydronephrosis --renal function stable, monitor closely --consider urology consult when more stable or if renal function deteriorates FEN Fluids: PO intake adequate Electrolytes: replete as indicated Nutrition: regular diet DVT prophylaxis: SCDs Dispo: requires inpatient care. Full code. Visit type - Emergency Visit Emergency Visit: Yes ED Registration Date: 03/10/19 Care time: The patient presented to the Emergency Department on the above date and was hospitalized for further evaluation of their emergent condition. - New Patient This patient is new to me today: No - Critical Care Critical Care patient: No Kassi Davis FIRE SPRINKLER INSTALLER: This documentation has been prepared by the Fernando lopez Maria, SCRIBE, under my direction and personally reviewed by me in its entirety. I confirm that the documentation accurately reflects all work, treatment, procedures, and medical decision making performed by me.
--- NOTE | 2019-03-11 17:41 | CONS ---
DATE OF CONSULTATION: 03/11/2019 REASON FOR ADMISSION: Abdominal abscess. This is a consultation requested by the [facility] physician. BRIEF HISTORY: This is a 64-year-old male who 10 days ago developed abdominal pain after eating [place] food. He went to his primary care physician and said "I think I have appendicitis.". He was given Augmentin. He was then sent to the emergency room even though the pain had lasted 10 days and had a CAT scan of his abdomen and pelvis, which was suggestive of an abscess in the right lower quadrant. The appendix was not clearly visualized. At my direction, the patient was evaluated by our service. He went for a drainage of the abscess. Those cultures are currently pending. The patient states he has lost 35 pounds in the last several months. He states that he was injured and unable to do his usual workouts and, thus, he lost muscle mass. He has never had a colonoscopy. PAST MEDICAL HISTORY: Significant for kidney stones. PAST SURGICAL HISTORY: Includes a triceps surgery and incision and drainage of the elbow in January 27, 2019. SOCIAL HISTORY: Negative for alcohol, negative for tobacco. FAMILY HISTORY: Noncontributory. ALLERGIES: He has no known drug allergies. MEDICATIONS: He takes no medications at home. He was eating without trouble as an outpatient. REVIEW OF SYSTEMS: General: Denies fatigue or malaise. Cardiac: Denies chest pain or palpitations. Respiratory: Denies shortness of breath or wheeze. Gastrointestinal: No nausea, no vomiting. Mild right lower quadrant pain. Genitourinary: Denies dysuria. Musculoskeletal: Denies joint pain. Psychiatric: Denies anxiety, depression, or hearing voices. PHYSICAL EXAMINATION: General: This is a thin 64-year-old male in no distress. Vital Signs: He is afebrile. HEENT: His head is normocephalic. Sclerae are anicteric. Neck: Supple. Chest: Clear. Abdomen: Soft. He currently has a drain in place, so he is sore at that area. Remainder of his abdominal exam is benign. Skin: He has no surgical scars. Extremities: No edema. LABORATORY: Review of his laboratory, his white blood cell count was 4.7. There is no shift. His chemistries are unremarkable. ASSESSMENT: A 64-year-old male who is status post interventional radiology drainage of a right lower quadrant abscess. Most likely this is a perforated appendicitis. Other differential would be diverticulitis, foreign body, malignancy, or hematoma. PLAN: We will follow the cultures. The Gram stain shows white blood cells, which is more consistent with infectious. At this point, he is stable. Okay with starting diet. He will likely need 5 days of IV antibiotic and then possibly a week of oral antibiotic. He will need a colonoscopy and then he should consider interval appendectomy unless a neoplasm is found on colonoscopy. At that point, he may require a right colectomy. At this point, no indication for acute surgical intervention. The patient understands that this may be a malignancy and declines exploratory surgery but that would likely require a portion of his bowel to be resection in the current setting with an abscess, and he does not wish to undergo surgery, which would be a laparotomy unless he is certain that it is necessary. He is willing to assume the risk of a delay in diagnosis of malignancy. He should follow with me in approximately 1 months' time. DO ROXANE PURDY/[id number]
[2019-03-12] MEDS ORDERED: PIPERACILLIN/TAZOBACTAM 3.375 GM VIAL IVPB ONE ×3 (00:51→15:48)
[2019-03-12] MEDS ORDERED: DEXTROSE 5%-WATER - 50 ML IVPB ONE ×3 (00:51→15:48)
[2019-03-12] MEDS: PIPERACILLIN/TAZOB 3.375 GM 3.375 GM in DEXTROSE 5%-WATER - 50 ML IVPB SCH ×3 (00:53→15:52)
[2019-03-12] MEDS ORDERED: oxyCODONE HCL 5 MG TABLET PO ONE (05:00)
[2019-03-12] MEDS: DEXTROSE 5%-0.45% SALINE 1,000 ML IV SCH ×2 (07:54→17:50)
[2019-03-12 08:53] LABS: BASO % 1.7 % (0-2.0); EOS % 2.8 % (0-4.5); HEMATOCRIT 38.8 % (35.4-49); LYMPH % 8.6 % (8-40); MCH 29.1 pg (25.7-33.7); MCHC 33.4 g/dl (32.0-35.9); MEAN PLT VOLUME 6.6 fl (7.5-11.1); MONO % 9.4 % (3.8-10.2); NEUT % 77.5 % (42.8-82.8); PLATELET COUNT 310 K/MM3 (134-434); RBC 4.46 M/mm3 (4.00-5.60); RDW 11.9 % (11.9-15.9); WHITE BLOOD COUNT 6.6 K/mm3 (4.0-10.8)
[2019-03-12 09:17] LABS: ALBUMIN 2.8 g/dl (3.4-5.0); BILIRUBIN,TOTAL 0.8 mg/dl (0.2-1); CALCIUM 7.9 mg/dl (8.5-10); CREATININE 0.8 mg/dl (0.55-1.3); MAGNESIUM 1.8 mg/dL (1.8-2.4); POTASSIUM 3.6 mmol/L (3.5-5.1); TOT PROT 5.5 g/dl (6.4-8.2)
[2019-03-12] MEDS ORDERED: ACETAMINOPHEN 1000 MG/100 ML VIAL (NON FORMULARY) IVPB PRN (10:12)
--- NOTE | 2019-03-12 10:35 | PN ---
Physical Exam: SUBJECTIVE: Patient seen and examined. Pt stated that the oxycodone upset his stomach. Denies any pain at this time. OBJECTIVE: Vital Signs Period Temp Pulse Resp BP Sys/Liang Pulse Ox Last 24 Hr 97.7 F-99.1 F 63-84 11-18 122-160/61-84 95-100 GENERAL: Awake, alert, and fully oriented, in no acute distress. LUNGS: Breath sounds equal, clear to auscultation bilaterally. No wheezes, and no crackles. No accessory muscle use. HEART: Regular rate and rhythm, normal S1 and S2 ABDOMEN: RLQ drain, serosanguinous fluid in JUAN, Dressing CDI UPPER EXTREMITIES: 2+ pulses, warm, well-perfused. No cyanosis. No clubbing. No peripheral edema. LOWER EXTREMITIES: 2+ pulses, warm, well-perfused. No calf tenderness. No peripheral edema. NEUROLOGICAL: Cranial nerves II-XII intact. Normal speech. Normal gait. SKIN: Warm, dry, normal turgor Laboratory Results - last 24 hr 03/12/19 03/12/19 08:45 08:45 WBC 6.6 RBC 4.46 Hgb 13.0 Hct 38.8 MCV 87.0 MCH 29.1 MCHC 33.4 RDW 11.9 Plt Count 310 MPV 6.6 L Absolute Neuts (auto) 5.1 Neutrophils % 77.5 Lymphocytes % 8.6 D Monocytes % 9.4 Eosinophils % 2.8 Basophils % 1.7 D Sodium 135 L Potassium 3.6 Chloride 103 Carbon Dioxide 26 Anion Gap 6 L BUN 12.0 Creatinine 0.8 Est GFR (CKD-EPI)AfAm 108.65 Est GFR (CKD-EPI)NonAf 93.74 Random Glucose 116 H Calcium 7.9 L Magnesium 1.8 Total Bilirubin 0.8 AST 22 ALT 27 Alkaline Phosphatase 70 D Total Protein 5.5 L Albumin 2.8 L Active Medications Generic Name Dose Route Start Last Admin Trade Name Freq PRN Reason Stop Dose Admin Dextrose/Sodium Chloride 1,000 mls @ 125 mls/hr 03/10/19 18:30 03/12/19 07:54 D5-1/2ns - IV Not Given ASDIR DINAH Piperacillin Sod/Tazobactam 50 mls @ 100 mls/hr 03/11/19 16:30 03/12/19 09:15 Sod 3.375 gm/ Dextrose IVPB 100 mls/hr Q8H DINAH Administration Protocol ASSESSMENT/PLAN: 64 year-old male with no significant PMH admitted for likely periappendiceal abscess. Periappendiceal abscess --1/2 CTAP: 3.7 x 3.3 x 4.3 mass RLQ --percutaneous drain placed today by IR; flush and record output q8h --continue Zosyn (day #3) --surgery Dr. Franco following --ID following --IR following Bilateral nephrolithiais Mild right-sided hydronephrosis --10mm calcification proximal right ureter, partially obstructing with minimal right-sided hydronephrosis --renal function stable, monitor closely --consider urology consult when more stable or if renal function deteriorates FEN Fluids: PO intake adequate Electrolytes: replete as indicated Nutrition: regular diet DVT prophylaxis: SCDs Dispo: requires inpatient care. Full code. Visit type - Emergency Visit Emergency Visit: Yes ED Registration Date: 03/10/19 Care time: The patient presented to the Emergency Department on the above date and was hospitalized for further evaluation of their emergent condition. - New Patient This patient is new to me today: Yes Date on this admission: 03/12/19 - Critical Care Critical Care patient: No - Discharge Referral Referred to [facility] No
[2019-03-13] MEDS ORDERED: DEXTROSE 5%-WATER - 50 ML IVPB ONE ×4 (00:04→23:28)
[2019-03-13] MEDS ORDERED: PIPERACILLIN/TAZOBACTAM 3.375 GM VIAL IVPB ONE ×4 (00:04→23:28)
[2019-03-13] MEDS: PIPERACILLIN/TAZOB 3.375 GM 3.375 GM in DEXTROSE 5%-WATER - 50 ML IVPB SCH ×4 (00:14→23:31)
[2019-03-13 08:36] LABS: BASO % 0.4 % (0-2.0); EOS % 2.2 % (0-4.5); HEMATOCRIT 33.5 % (35.4-49); HEMOGLOBIN 10.9 GM/dl (11.7-16.9); LYMPH % 10.8 % (8-40); MCH 29.8 pg (25.7-33.7); MCHC 32.4 g/dl (32.0-35.9); MEAN CELL VOLUME 91.9 fl (80-96); MEAN PLT VOLUME 7.2 fl (7.5-11.1); MONO % 11.4 % (3.8-10.2); NEUT % 75.2 % (42.8-82.8); PLATELET COUNT 255 K/MM3 (134-434); RBC 3.64 M/mm3 (4.00-5.60); RDW 12.3 % (11.9-15.9); WHITE BLOOD COUNT 5.4 K/mm3 (4.0-10.8)
--- NOTE | 2019-03-13 08:42 | PN ---
Physical Exam: SUBJECTIVE: Patient seen and examined OBJECTIVE: Vital Signs Period Temp Pulse Resp BP Sys/Liang Pulse Ox Last 24 Hr 98.2 F-99.1 F 69-96 16-18 141-158/68-89 95-98 GENERAL: Awake, alert, and fully oriented, in no acute distress. LUNGS: Breath sounds equal, clear to auscultation bilaterally. No wheezes, and no crackles. No accessory muscle use. HEART: Regular rate and rhythm, normal S1 and S2 ABDOMEN: RLQ drain, serosanguinous fluid in JUAN, Dressing CDI UPPER EXTREMITIES: 2+ pulses, warm, well-perfused. No cyanosis. No clubbing. No peripheral edema. LOWER EXTREMITIES: 2+ pulses, warm, well-perfused. No calf tenderness. No peripheral edema. NEUROLOGICAL: Cranial nerves II-XII intact. Normal speech. Normal gait. SKIN: Warm, dry, normal turgor Laboratory Results - last 24 hr 03/12/19 03/12/19 08:45 08:45 WBC 6.6 RBC 4.46 Hgb 13.0 Hct 38.8 MCV 87.0 MCH 29.1 MCHC 33.4 RDW 11.9 Plt Count 310 MPV 6.6 L Absolute Neuts (auto) 5.1 Neutrophils % 77.5 Lymphocytes % 8.6 D Monocytes % 9.4 Eosinophils % 2.8 Basophils % 1.7 D Sodium 135 L Potassium 3.6 Chloride 103 Carbon Dioxide 26 Anion Gap 6 L BUN 12.0 Creatinine 0.8 Est GFR (CKD-EPI)AfAm 108.65 Est GFR (CKD-EPI)NonAf 93.74 Random Glucose 116 H Calcium 7.9 L Magnesium 1.8 Total Bilirubin 0.8 AST 22 ALT 27 Alkaline Phosphatase 70 D Total Protein 5.5 L Albumin 2.8 L Active Medications Generic Name Dose Route Start Last Admin Trade Name Freq PRN Reason Stop Dose Admin Acetaminophen 1,000 mg 03/12/19 10:12 Ofirmev Injection - IVPB Q6H PRN PAIN Dextrose/Sodium Chloride 1,000 mls @ 125 mls/hr 03/10/19 18:30 03/12/19 17:50 D5-1/2ns - IV 125 mls/hr ASDIR DINAH Administration Piperacillin Sod/Tazobactam 50 mls @ 100 mls/hr 03/11/19 16:30 03/13/19 00:14 Sod 3.375 gm/ Dextrose IVPB 100 mls/hr Q8H DINAH Administration Protocol ASSESSMENT/PLAN: 64 year-old male with no significant PMH admitted for likely periappendiceal abscess. Periappendiceal abscess --1/2 CTAP: 3.7 x 3.3 x 4.3 mass RLQ --percutaneous drain placed today by IR; flush and record output q8h --continue Zosyn (day #4) --Body Fluid Culture-(Prelimanary) Streptococcus Species-Moderate --Surgery Dr. Franco following --ID following --IR following Bilateral nephrolithiais Mild right-sided hydronephrosis --10mm calcification proximal right ureter, partially obstructing with minimal right-sided hydronephrosis --renal function stable, monitor closely --consider urology consult when more stable or if renal function deteriorates Hypokalemia --K+3.3 --KCl 40mEq PO once --CMP in AM Hypomagnesemia --1.6 --1gm Mag Sul IVPB once --CMP in AM FEN Fluids: PO intake adequate Electrolytes: replete as indicated Nutrition: regular diet DVT prophylaxis: SCDs Dispo: requires inpatient care. Full code. Visit type - Emergency Visit Emergency Visit: Yes ED Registration Date: 03/10/19 Care time: The patient presented to the Emergency Department on the above date and was hospitalized for further evaluation of their emergent condition. - New Patient This patient is new to me today: No - Critical Care Critical Care patient: No
[2019-03-13 09:14] LABS: ALBUMIN 2.5 g/dl (3.4-5.0); BILIRUBIN,TOTAL 0.3 mg/dl (0.2-1); CREATININE 0.8 mg/dl (0.55-1.3); MAGNESIUM 1.6 mg/dL (1.8-2.4); TOT PROT 4.9 g/dl (6.4-8.2)
[2019-03-13] MEDS ORDERED: POTASSIUM CHLORIDE TABS 20 MEQ TABLET.ER (FP) PO ONE (10:15)
[2019-03-13] MEDS ORDERED: MAGNESIUM SULF 50% (8.12 MEQ/2 ML-1 GM VIAL) IVPB ONE (10:45)
[2019-03-13 11:35] LABS: ALBUMIN 3.1 g/dl (3.4-5.0); BILIRUBIN,TOTAL 0.5 mg/dl (0.2-1); CALCIUM 8.5 mg/dl (8.5-10); CREATININE 0.8 mg/dl (0.55-1.3); POTASSIUM 3.3 mmol/L (3.5-5.1); TOT PROT 6.2 g/dl (6.4-8.2)
[2019-03-14 07:57] LABS: BASO % 0.5 % (0-2.0); EOS % 6.3 % (0-4.5); HEMATOCRIT 39.1 % (35.4-49); HEMOGLOBIN 12.9 GM/dl (11.7-16.9); LYMPH % 17.5 % (8-40); MCH 28.9 pg (25.7-33.7); MCHC 33.1 g/dl (32.0-35.9); MEAN CELL VOLUME 87.5 fl (80-96); MEAN PLT VOLUME 6.8 fl (7.5-11.1); MONO % 10.1 % (3.8-10.2); NEUT % 65.6 % (42.8-82.8); PLATELET COUNT 333 K/MM3 (134-434); RBC 4.47 M/mm3 (4.00-5.60); RDW 12.1 % (11.9-15.9); WHITE BLOOD COUNT 5.5 K/mm3 (4.0-10.8)
[2019-03-14] MEDS ORDERED: DEXTROSE 5%-WATER - 50 ML IVPB ONE ×3 (08:03→23:19)
[2019-03-14] MEDS ORDERED: PIPERACILLIN/TAZOBACTAM 3.375 GM VIAL IVPB ONE ×3 (08:03→23:19)
[2019-03-14] MEDS: PIPERACILLIN/TAZOB 3.375 GM 3.375 GM in DEXTROSE 5%-WATER - 50 ML IVPB SCH ×3 (08:09→23:30)
[2019-03-14 08:43] LABS: BILIRUBIN,TOTAL 0.3 mg/dl (0.2-1); CALCIUM 8.4 mg/dl (8.5-10); CREATININE 0.8 mg/dl (0.55-1.3); MAGNESIUM 2.1 mg/dL (1.8-2.4); POTASSIUM 3.9 mmol/L (3.5-5.1); TOT PROT 5.7 g/dl (6.4-8.2)
--- NOTE | 2019-03-14 11:53 | PATH ---
Cytology Non-Gynecological Report Patient Name: JULIO LEONG Med. Rec. #: [id number] /Age/Gender: 1955 (Age: 64) / M Account: [id number] Location: [facility] MED-SURG Taken: 03/11/2019 Received: 03/11/2019 Reported: 03/14/2019 Physicians: Jeff Gates ACNP Specimen(s) Received MINDY-APPENDICEAL COLLECTION/ABSCESS Clinical History Mindy-appendiceal collection/abscess Final Diagnosis MINDY-APPENDICEAL COLLECTION/ABSCESS FOR CYTOLOGY: SATISFACTORY FOR EVALUATION. NEGATIVE FOR MALIGNANT CELLS. ACUTE AND CHRONIC INFLAMMATORY EXUDATE CONSISTENT WITH ABSCESS. INFLAMMATORY EXUDATE PREDOMINANTLY COMPRISED OF NUMEROUS NEUTROPHILS, NUMEROUS MACROPHAGES, RARE LYMPHOCYTES, AND RARE PLASMA CELLS IN HEMORRHAGIC BACKGROUND PRESENT. SEE COMMENT. Comment: Suggest clinical and microbiology studies correlation. Electronically Signed Raquel Zamora M.D. Gross Description Approximately 35 cc of bloody fluid received fixed in 50% alcohol. One cytofunnel prepared and Pap stained. One cellblock prepared.
--- NOTE | 2019-03-14 12:30 | PN ---
Documentation entered by Raquel King SCRIBE, acting as scribe for Kassi Davis NP. Physical Exam: SUBJECTIVE: Patient seen and examined at bedside. Denies any fevers or chills. OBJECTIVE: Vital Signs Period Temp Pulse Resp BP Sys/Liang Pulse Ox Last 24 Hr 97.4 F-98.6 F 63-75 16-18 132-146/66-79 97-97 GENERAL: Awake, alert, and fully oriented, in no acute distress. Anxious. LUNGS: Breath sounds equal, clear to auscultation bilaterally. No wheezes, and no crackles. No accessory muscle use. HEART: Regular rate and rhythm, normal S1 and S2 ABDOMEN: RLQ drain, scant serosanguinous fluid in JUAN UPPER EXTREMITIES: 2+ pulses, warm, well-perfused. No cyanosis. No clubbing. No peripheral edema. LOWER EXTREMITIES: 2+ pulses, warm, well-perfused. No calf tenderness. No peripheral edema. NEUROLOGICAL: Cranial nerves II-XII intact. Normal speech. SKIN: Warm, dry, normal turgor Laboratory Results - last 24 hr 03/13/19 03/13/19 03/13/19 08:27 10:55 11:24 WBC RBC Hgb Hct MCV MCH MCHC RDW Plt Count MPV Absolute Neuts (auto) Neutrophils % Lymphocytes % Monocytes % Eosinophils % Basophils % Sodium 135 L Potassium 3.3 L Chloride 101 Carbon Dioxide 26 Anion Gap 8 BUN 9.0 Creatinine 0.8 Est GFR (CKD-EPI)AfAm 108.65 Est GFR (CKD-EPI)NonAf 93.74 POC Glucometer 140 Random Glucose 770 H* 142 H Calcium 8.5 Magnesium Total Bilirubin 0.5 AST 29 ALT 31 Alkaline Phosphatase 80 D Total Protein 6.2 L Albumin 3.1 L 03/13/19 03/14/19 03/14/19 11:36 06:57 06:57 WBC 5.5 RBC 4.47 Hgb 12.9 Hct 39.1 D MCV 87.5 MCH 28.9 MCHC 33.1 RDW 12.1 Plt Count 333 D MPV 6.8 L Absolute Neuts (auto) 3.6 Neutrophils % 65.6 Lymphocytes % 17.5 D Monocytes % 10.1 Eosinophils % 6.3 H D Basophils % 0.5 Sodium 138 Potassium 3.9 Chloride 103 Carbon Dioxide 25 Anion Gap 10 BUN 16.0 Creatinine 0.8 Est GFR (CKD-EPI)AfAm 108.65 Est GFR (CKD-EPI)NonAf 93.74 POC Glucometer Random Glucose 112 H Calcium 8.4 L Magnesium 2.2 2.1 Total Bilirubin 0.3 AST 32 ALT 36 Alkaline Phosphatase 69 D Total Protein 5.7 L Albumin 3.0 L Active Medications Generic Name Dose Route Start Last Admin Trade Name Freq PRN Reason Stop Dose Admin Acetaminophen 1,000 mg 03/12/19 10:12 Ofirmev Injection - IVPB Q6H PRN PAIN Piperacillin Sod/Tazobactam 50 mls @ 100 mls/hr 03/11/19 16:30 03/14/19 08:09 Sod 3.375 gm/ Dextrose IVPB 100 mls/hr Q8H DINAH Administration Protocol Microbiology 03/10/19 20:10 Blood - Peripheral Venous Blood Culture - Preliminary NO GROWTH OBTAINED AFTER 72 HOURS, INCUBATION TO CONTINUE FOR 2 DAYS. 03/10/19 19:50 Blood - Peripheral Venous Blood Culture - Preliminary NO GROWTH OBTAINED AFTER 72 HOURS, INCUBATION TO CONTINUE FOR 2 DAYS. 03/11/19 13:07 Abscess Gram Stain - Final 03/11/19 13:07 Abscess Body Fluid Culture - Preliminary Streptococcus Species 03/11/19 13:07 Abscess Anaerobic Culture - Final NO ANAEROBES WERE ISOLATED 03/10/19 17:00 Urine - Urine Clean Catch Urine Culture - Final NO GROWTH OBTAINED JUAN Drain Output: As of 03/14/2019 total drain output over the past 48hrs is 16.5cc ASSESSMENT/PLAN: 64 year-old male with no significant PMH admitted for periappendiceal abscess. Periappendiceal abscess --1/2 CTAP: 3.7 x 3.3 x 4.3 mass RLQ --1/3 percutaneous drain placed, minimal output over past 48 hours --culture (+) strep species --pathology: negative for malignant cells --continue Zosyn (day #4) --will discsus with IR and surgery possible further surgical intervention Bilateral nephrolithiais Mild right-sided hydronephrosis --10mm calcification proximal right ureter, partially obstructing with minimal right-sided hydronephrosis --renal function stable, monitor closely --consider urology consult when more stable or if renal function deteriorates FEN Fluids: PO intake adequate Electrolytes: replete as indicated Nutrition: regular diet; NPO after midnight for possible surgical intervention DVT prophylaxis: SCDs, hold chemical prophylaxis for now Dispo: requires inpatient care. Full code. Visit type - Emergency Visit Emergency Visit: Yes ED Registration Date: 03/10/19 Care time: The patient presented to the Emergency Department on the above date and was hospitalized for further evaluation of their emergent condition. - New Patient This patient is new to me today: No - Critical Care Critical Care patient: No Kassi Davis CREATIVE SERVICES SPECIALIST: This documentation has been prepared by the Fernando lopez Maria, SCRIBE, under my direction and personally reviewed by me in its entirety. I confirm that the documentation accurately reflects all work, treatment, procedures, and medical decision making performed by me.
[2019-03-14] MEDS: DEXTROSE 5%-0.45% SALINE 1,000 ML IV SCH (14:36)
[2019-03-15] MEDS ORDERED: DEXTROSE 5%-WATER - 50 ML IVPB ONE ×3 (08:09→23:32)
[2019-03-15] MEDS ORDERED: PIPERACILLIN/TAZOBACTAM 3.375 GM VIAL IVPB ONE ×3 (08:09→23:32)
--- NOTE | 2019-03-15 09:15 | PN ---
Documentation entered by Raquel King SCRIBE, acting as scribe for Kassi Davis NP. Physical Exam: SUBJECTIVE: Patient seen and examined at bedside. Voices no physical complaints. No fever, no pain. Many questions about plan of care. Seen ambulating in hallway on several occasions. OBJECTIVE: Vital Signs Period Temp Pulse Resp BP Sys/Liang Pulse Ox Last 24 Hr 97.8 F-98.5 F 63-89 16-20 127-152/71-94 97-98 GENERAL: Awake, alert, and fully oriented, in no acute distress. Anxious about health. LUNGS: Breath sounds equal, clear to auscultation bilaterally. No wheezes, and no crackles. No accessory muscle use. HEART: Regular rate and rhythm, normal S1 and S2 ABDOMEN: RLQ drain, scant serosanguinous fluid in JUAN UPPER EXTREMITIES: 2+ pulses, warm, well-perfused. No cyanosis. No clubbing. No peripheral edema. LOWER EXTREMITIES: 2+ pulses, warm, well-perfused. No calf tenderness. No peripheral edema. NEUROLOGICAL: Cranial nerves II-XII intact. Normal speech. Steady gait. SKIN: Warm, dry, normal turgor Laboratory Results - last 24 hr 03/14/19 03/14/19 06:57 06:57 WBC 5.5 RBC 4.47 Hgb 12.9 Hct 39.1 D MCV 87.5 MCH 28.9 MCHC 33.1 RDW 12.1 Plt Count 333 D MPV 6.8 L Absolute Neuts (auto) 3.6 Neutrophils % 65.6 Lymphocytes % 17.5 D Monocytes % 10.1 Eosinophils % 6.3 H D Basophils % 0.5 Sodium 138 Potassium 3.9 Chloride 103 Carbon Dioxide 25 Anion Gap 10 BUN 16.0 Creatinine 0.8 Est GFR (CKD-EPI)AfAm 108.65 Est GFR (CKD-EPI)NonAf 93.74 Random Glucose 112 H Calcium 8.4 L Magnesium 2.1 Total Bilirubin 0.3 AST 32 ALT 36 Alkaline Phosphatase 69 D Total Protein 5.7 L Albumin 3.0 L Active Medications Generic Name Dose Route Start Last Admin Trade Name Freq PRN Reason Stop Dose Admin Piperacillin Sod/Tazobactam 50 mls @ 100 mls/hr 03/11/19 16:30 03/14/19 23:30 Sod 3.375 gm/ Dextrose IVPB 100 mls/hr Q8H DINAH Administration Protocol Microbiology 03/11/19 13:07 Abscess Gram Stain - Final 03/11/19 13:07 Abscess Body Fluid Culture - Final Streptococcus Anginosus Staphylococcus Coagulase Neg 03/11/19 13:07 Abscess Anaerobic Culture - Final NO ANAEROBES WERE ISOLATED 03/10/19 20:10 Blood - Peripheral Venous Blood Culture - Preliminary NO GROWTH OBTAINED AFTER 96 HOURS, INCUBATION TO CONTINUE FOR 1 DAYS. 03/10/19 19:50 Blood - Peripheral Venous Blood Culture - Preliminary NO GROWTH OBTAINED AFTER 96 HOURS, INCUBATION TO CONTINUE FOR 1 DAYS. 03/10/19 17:00 Urine - Urine Clean Catch Urine Culture - Final NO GROWTH OBTAINED ASSESSMENT/PLAN: 64 year-old male with no significant PMH admitted for periappendiceal abscess. Periappendiceal abscess --1/2 CTAP: 3.7 x 3.3 x 4.3 mass RLQ --1/3 percutaneous drain placed, minimal output over past 72 hours; plan to d /c prior to discharge --culture (+) Strep anginosus and staph coag neg; need ID input; continue Zosyn (day #4), possible swtich to ceftriaxone --pathology: negative for malignant cells --echo pending Bilateral nephrolithiais Mild right-sided hydronephrosis --10mm calcification proximal right ureter, partially obstructing with minimal right-sided hydronephrosis --renal function stable, asymptomatic --outpatient urology consult FEN Fluids: PO intake adequate Electrolytes: replete as indicated Nutrition: regular diet DVT prophylaxis: SCDs, hold chemical prophylaxis for now Dispo: requires inpatient care. Full code. Visit type - Emergency Visit Emergency Visit: Yes ED Registration Date: 03/10/19 Care time: The patient presented to the Emergency Department on the above date and was hospitalized for further evaluation of their emergent condition. - New Patient This patient is new to me today: No - Critical Care Critical Care patient: No Kassi Davis, PANFILO: This documentation has been prepared by the Fernando lopez Maria, SCRIBE, under my direction and personally reviewed by me in its entirety. I confirm that the documentation accurately reflects all work, treatment, procedures, and medical decision making performed by me.
[2019-03-15] MEDS: PIPERACILLIN/TAZOB 3.375 GM 3.375 GM in DEXTROSE 5%-WATER - 50 ML IVPB SCH (23:46)
[2019-03-16 07:52] LABS: HEMATOCRIT 46.2 % (35.4-49); HEMOGLOBIN 15.3 GM/dl (11.7-16.9); MCH 29.1 pg (25.7-33.7); MCHC 33.2 g/dl (32.0-35.9); MEAN CELL VOLUME 87.6 fl (80-96); MEAN PLT VOLUME 6.9 fl (7.5-11.1); PLATELET COUNT 346 K/MM3 (134-434); RBC 5.27 M/mm3 (4.00-5.60); RDW 12.8 % (11.9-15.9); WHITE BLOOD COUNT 8.4 K/mm3 (4.0-10.8)
[2019-03-16 07:57] LABS: CALCIUM 8.6 mg/dl (8.5-10); CREATININE 0.9 mg/dl (0.55-1.3); POTASSIUM 3.8 mmol/L (3.5-5.1)
[2019-03-16] MEDS ORDERED: SODIUM CHLORIDE 1,000 ML IV STA ×2 (08:10→08:12)
[2019-03-16] MEDS: CEFTRIAXONE 2 GM-D5W BAG 2 GM/50 ML BAG IVPB SCH (08:35)
[2019-03-16 08:47] LABS: PLATELET ESTIMATE ADEQUATE
--- NOTE | 2019-03-16 09:09 | PN ---
Progress Note, Physician History of Present Illness: AWAKE, ALERT IN BED OFFERS NO COMPLAINTS SPIKED TEMP 102.7 THIS AM OFFERS NO COMPLAINTS NO C/O RIGORS NO C/O CHEST PAIN/ DYSPNEA/ COUGH DENIES ABDOMINAL PAIN NO N/V + BM NO PHLEBITIS - Current Medication List Current Medications: Active Medications Acetaminophen (Tylenol -) 650 mg PO Q6H PRN PRN Reason: FEVER Ceftriaxone Sodium (Ceftriaxone 2 Gm-D5w Bag) 2 gm in 50 mls @ 100 mls/hr IVPB DAILY DINAH; Protocol Sodium Chloride (Normal Saline -) 1,000 mls @ 1,000 mls/hr IV ASDIR STA Stop: 03/16/19 09:09 Sodium Chloride (Normal Saline -) 1,000 mls @ 1,000 mls/hr IV ASDIR STA Stop: 03/16/19 09:11 Sodium Chloride (Normal Saline -) 1,000 mls @ 125 mls/hr IV ASDIR DINAH - Objective Vital Signs: Vital Signs Temperature 99.1 F 03/16/19 08:23 Pulse Rate 102 H 03/16/19 06:00 Respiratory Rate 19 03/16/19 06:00 Blood Pressure 157/64 03/16/19 06:00 O2 Sat by Pulse Oximetry (%) 94 L 03/16/19 07:05 Constitutional: Yes: No Distress Eyes: Yes: Conjunctiva Clear Cardiovascular: Yes: Regular Rate and Rhythm, S1, S2 Respiratory: Yes: CTA Bilaterally Gastrointestinal: Yes: Normal Bowel Sounds, Soft, Other (ABDOMINAL DRAIN IN PLACE + SEROSANGUINOUS DRAINAGE). No: Tenderness Extremities: No: Calf Tenderness Edema: No Labs: CBC, BMP 03/16/19 07:15 03/16/19 07:15 INR, PTT INR 1.39 (0.82-1.09) H 03/10/19 17:30 Assessment/Plan NEW ONSET FEVER ? SOURCE S/P PERCUTANEOUS DRAINAGE PERIAPPENDICEAL COLLECTION REPEAT BC CXR U/A, URINE C/S REPEAT CT ABDOMEN /PELVIS CONTINUE CEFTRIAXONE FOR NOW
[2019-03-16] MEDS ORDERED: CEFTRIAXONE 2 GM-D5W BAG 2 GM/50 ML BAG IVPB SCH (10:00)
[2019-03-16 11:33] LABS: EPITHELIAL CELLS RARE /hpf
[2019-03-16] MEDS: SODIUM CHLORIDE 1,000 ML IV SCH (11:45)
--- NOTE | 2019-03-16 15:34 | ECHO ---
Name: JULIO LEONG Exam:Adult Echocardiogram Study Date: 03/16/2019 12:43 PM Age: 64 yrs Reason For Study: R/O Endocarditis Height: 70 in Weight: 159 lb BSA: 1.9 m2 MMode/2D Measurements & Calculations IVSd: 1.1 cm Ao root diam: 2.8 cm LVIDd: 4.6 cm LA dimension: 3.0 cm LVIDs: 3.2 cm LVPWd: 1.0 cm EDV(Teich): 98.5 ml LVOT diam: 2.0 cm ESV(Teich): 39.6 ml Doppler Measurements & Calculations MV E max carlos: 58.2 cm/sec MV A max carlos: 56.4 cm/sec MV dec slope: 312.2 cm/sec2 MV E/A: 1.0 Ao V2 max: 95.5 cm/sec LV V1 max P.2 mmHg Ao max P.6 mmHg LV V1 max: 89.4 cm/sec CHINO(V,D): 3.0 cm2 PA V2 max: 70.7 cm/sec PA max P.0 mmHg Procedure A two-dimensional transthoracic echocardiogram with color flow and Doppler was performed. The study w as technically difficult with many images being suboptimal in quality. Left Ventricle The left ventricular size, thickness and function are normal. The left ventricular ejection fraction is normal. The left ventricular wall motion is normal. Atria Normal left and right atrial size and function. Mitral Valve The mitral valve is not well visualized. There is no mitral valve stenosis. There is trace to mild mi tral regurgitation. Tricuspid Valve The tricuspid valve is not well visualized. There is no tricuspid stenosis. There was insufficient TR detected to calculate RV systolic pressure. Aortic Valve The aortic valve is trileaflet. There is discrete nodular thickening of the non- coronary cusp. Canno t exclude aortic valvular vegetation. No hemodynamically significant valvular aortic stenosis. No aortic regurg itation is present. Pulmonic Valve The pulmonic valve is not well visualized. Great Vessels The aortic root is normal size. Pericardium/Pleura There is no pericardial effusion. Interpretation Summary Clinical correlation is recommended. Would consider a transesophageal echocardiogram if clinically in dicated. The left ventricular size, thickness and function are normal The left ventricular ejection fraction is normal. The left ventricular wall motion is normal. The aortic valve is trileaflet. There is discrete nodular thickening of the non- coronary cusp. Cannot exclude aortic valvular vegetation. Clinical correlation is recommended. Would consider a transesophageal echocardiogram if clinically indicated. There is trace to mild mitral regurgitation. There was insufficient TR detected to calculate RV systolic pressure. The study was technically difficult with many images being suboptimal in quality. MD Lucas Abbasi 03/16/2019 03:34 PM
--- NOTE | 2019-03-16 18:09 | CON.CARD ---
Cardiology Consult (text) - Consultation Consultation Note: cc: abd pain hpi: 64 m no sig pmhx here with abd pain. No cp sob palps dizzy loc pnd orthopnea le edema. Found to have abd abscess, now s/p drain and abx, feeling better. pmh: per hpi psh: per hpi; arm surgery social: no tob fam: no premature cad scd ros: per hpi; all others nl meds: Home Medications Medication Instructions Recorded NK [No Known Home Medication] 03/10/19 pe: Vital Signs Period Temp Pulse Resp BP Sys/Liang Pulse Ox Last 24 Hr 98.6 F-102.7 F 82-106 18-20 141-161/64-85 94-97 nad no jvd rrr s1s2 no mrg cta bl nl eff aao3 no le e/c/c abd nt nd pos bs no jaundice diaphoresis pos dp pt no carotid bruits Laboratory Last Values WBC 8.4 K/mm3 (4.0-10.8) 03/16/19 07:15 RBC 5.27 M/mm3 (4.00-5.60) 03/16/19 07:15 Hgb 15.3 GM/dl (11.7-16.9) 03/16/19 07:15 Hct 46.2 % (35.4-49) D 03/16/19 07:15 MCV 87.6 fl (80-96) 03/16/19 07:15 MCH 29.1 pg (25.7-33.7) 03/16/19 07:15 MCHC 33.2 g/dl (32.0-35.9) 03/16/19 07:15 RDW 12.8 % (11.9-15.9) 03/16/19 07:15 Plt Count 346 K/MM3 (134-434) 03/16/19 07:15 MPV 6.9 fl (7.5-11.1) L 03/16/19 07:15 Absolute Neuts (auto) 7.1 K/mm3 03/16/19 07:15 Neutrophils % No Result Required. 03/16/19 07:15 Neutrophils % (Manual) 76.0 % (42.8-82.8) 03/16/19 07:15 Band Neutrophils % 2.0 % (0-10) 03/16/19 07:15 Lymphocytes % No Result Required. 03/16/19 07:15 Lymphocytes % (Manual) 16.0 % (8-40) 03/16/19 07:15 Monocytes % 10.1 % (3.8-10.2) 03/14/19 06:57 Monocytes % (Manual) 6 % (3.8-10.2) 03/16/19 07:15 Eosinophils % 6.3 % (0-4.5) H D 03/14/19 06:57 Basophils % 0.5 % (0-2.0) 03/14/19 06:57 Platelet Estimate Adequate 03/16/19 07:15 PT with INR 15.5 SEC (10.2-13.0) H 03/10/19 17:30 INR 1.39 (0.82-1.09) H 03/10/19 17:30 PTT (Actin FS) 31.4 SECONDS (25.2-36.5) 03/10/19 17:30 Sodium 133 mmol/L (136-145) L 03/16/19 07:15 Potassium 3.8 mmol/L (3.5-5.1) 03/16/19 07:15 Chloride 100 mmol/L (98-107) 03/16/19 07:15 Carbon Dioxide 23 mmol/L (21-32) 03/16/19 07:15 Anion Gap 10 MMOL/L (8-16) 03/16/19 07:15 BUN 16.0 mg/dl (7-18) 03/16/19 07:15 Creatinine 0.9 mg/dl (0.55-1.3) 03/16/19 07:15 Est GFR (CKD-EPI)AfAm 103.51 03/16/19 07:15 Est GFR (CKD-EPI)NonAf 89.31 03/16/19 07:15 POC Glucometer 140 UNITS (80-120) 03/13/19 10:55 Random Glucose 124 mg/dl (74-106) H 03/16/19 07:15 Lactic Acid 1.0 mmol/L (0.4-2.0) 03/16/19 07:15 Calcium 8.6 mg/dl (8.5-10) 03/16/19 07:15 Magnesium 2.1 mg/dL (1.8-2.4) 03/14/19 06:57 Total Bilirubin 0.3 mg/dl (0.2-1) 03/14/19 06:57 AST 32 U/L (15-37) 03/14/19 06:57 ALT 36 U/L (13-61) 03/14/19 06:57 Alkaline Phosphatase 69 U/L (45-117) D 03/14/19 06:57 Total Protein 5.7 g/dl (6.4-8.2) L 03/14/19 06:57 Albumin 3.0 g/dl (3.4-5.0) L 03/14/19 06:57 Urine Color Yellow 03/16/19 10:28 Urine Appearance Clear 03/16/19 10:28 Urine pH 6.0 (4.5-8) 03/16/19 10:28 Urine Protein Trace (NEGATIVE) 03/16/19 10:28 Urine Glucose (UA) Negative (NEGATIVE) 03/16/19 10:28 Urine Ketones Negative (NEGATIVE) 03/16/19 10:28 Urine Blood Trace-intact (NEGATIVE) 03/16/19 10:28 Urine Nitrite Negative (NEGATIVE) 03/16/19 10:28 Urine Bilirubin Negative (NEGATIVE) 03/16/19 10:28 Urine Urobilinogen 0.2 (0.2-1.0) 03/16/19 10:28 Ur Leukocyte Esterase Negative (NEGATIVE) 03/16/19 10:28 Urine RBC 2-5 /hpf (0-4) 03/16/19 10:28 Urine WBC 0-2 (NEGATIVE) 03/16/19 10:28 Ur Transition Epith Cell Rare /hpf 03/16/19 10:28 Blood Type A POSITIVE 03/10/19 17:30 Antibody Screen Negative 03/10/19 17:30 ecg: sr nl intervals no ischemic changes echo 03/2019: my read: nl lv/rv, no sig valve path, small nodular calcification on av, does not appear to be veg cxr: clear lungs a/p: 64 m no sig pmhx here with abd pain. abd abscess: -echo was reviewed, no signs of endocarditis (aortic valve has calcium deposit, does not appear to be vegetation) -blood cx ngtd, repeat pending -abx per ID
--- NOTE | 2019-03-16 18:45 | PN ---
Documentation entered by Raquel King SCRIBE, acting as scribe for Kassi Davis NP. Physical Exam: SUBJECTIVE: Patient seen and examined oob. Seen ambulating frequently in [place]. States feels well. OBJECTIVE: Vital Signs Period Temp Pulse Resp BP Sys/Liang Pulse Ox Last 24 Hr 99.3 F-102.7 F 80-106 16-20 130-161/64-85 94-98 GENERAL: Awake, alert, and fully oriented, in no acute distress. LUNGS: Breath sounds equal, clear to auscultation bilaterally. No wheezes, and no crackles. No accessory muscle use. HEART: Regular rate and rhythm, normal S1 and S2 ABDOMEN: RLQ drain, scant serosanguinous fluid in JUAN UPPER EXTREMITIES: 2+ pulses, warm, well-perfused. No cyanosis. No clubbing. No peripheral edema. LOWER EXTREMITIES: 2+ pulses, warm, well-perfused. No calf tenderness. No peripheral edema. NEUROLOGICAL: Cranial nerves II-XII intact. Normal speech. Steady gait. SKIN: Warm, dry, normal turgor Laboratory Results - last 24 hr 03/16/19 03/16/19 07:15 07:15 WBC 8.4 RBC 5.27 Hgb 15.3 Hct 46.2 D MCV 87.6 MCH 29.1 MCHC 33.2 RDW 12.8 Plt Count 346 MPV 6.9 L Absolute Neuts (auto) 7.1 Neutrophils % No Result Required. Lymphocytes % No Result Required. Sodium 133 L Potassium 3.8 Chloride 100 Carbon Dioxide 23 Anion Gap 10 BUN 16.0 Creatinine 0.9 Est GFR (CKD-EPI)AfAm 103.51 Est GFR (CKD-EPI)NonAf 89.31 Random Glucose 124 H Calcium 8.6 Active Medications Generic Name Dose Route Start Last Admin Trade Name Freq PRN Reason Stop Dose Admin Ceftriaxone Sodium 2 gm in 50 mls @ 100 mls/hr 03/16/19 08:09 Ceftriaxone 2 Gm-D5w Bag IVPB DAILY DINAH Protocol Sodium Chloride 1,000 mls @ 1,000 mls/hr 03/16/19 08:10 Normal Saline - IV 03/16/19 09:09 ASDIR STA Microbiology 03/11/19 13:07 Abscess Gram Stain - Final 03/11/19 13:07 Abscess Body Fluid Culture - Final Streptococcus Anginosus Staphylococcus Coagulase Neg 03/11/19 13:07 Abscess Anaerobic Culture - Final NO ANAEROBES WERE ISOLATED 03/10/19 20:10 Blood - Peripheral Venous Blood Culture - Preliminary NO GROWTH OBTAINED AFTER 96 HOURS, INCUBATION TO CONTINUE FOR 1 DAYS. 03/10/19 19:50 Blood - Peripheral Venous Blood Culture - Preliminary NO GROWTH OBTAINED AFTER 96 HOURS, INCUBATION TO CONTINUE FOR 1 DAYS. 03/10/19 17:00 Urine - Urine Clean Catch Urine Culture - Final NO GROWTH OBTAINED ASSESSMENT/PLAN: 64 year-old male with no significant PMH admitted for periappendiceal abscess. Sepsis likely secondary to periappendiceal abscess --fever spike to 101.2, p 102, no leukocytosis. lactic acid wnl --repeat CT imaging today, mass is smaller but drain still with scant output over 5 days --culture (+) Strep anginosus and staph coag neg; switched to ceftriaxone today (day #1); had received Zosyn x 4 days --pathology: negative for malignant cells --Echo: read by reading boy's adviser as possible vegetation on aortic leaflet ; reviewed by Dr. Hawley who is following the patient, this is a calcification , not vegetation Bilateral nephrolithiais Mild right-sided hydronephrosis --10mm calcification proximal right ureter, partially obstructing with minimal right-sided hydronephrosis --renal function stable, asymptomatic --outpatient urology consult FEN Fluids: PO intake adequate Electrolytes: replete as indicated Nutrition: regular diet DVT prophylaxis: SCDs, hold chemical prophylaxis for now Dispo: requires inpatient care. Full code. Visit type - Emergency Visit Emergency Visit: Yes ED Registration Date: 03/10/19 Care time: The patient presented to the Emergency Department on the above date and was hospitalized for further evaluation of their emergent condition. - New Patient This patient is new to me today: No - Critical Care Critical Care patient: No Kassi Davis, PANFILO: This documentation has been prepared by the Fernando lopez Maria, SCRIBE, under my direction and personally reviewed by me in its entirety. I confirm that the documentation accurately reflects all work, treatment, procedures, and medical decision making performed by me.
[2019-03-17] MEDS: ACETAMINOPHEN 325 MG TABLET (FP) PO PRN ×3 (05:10→21:50)
[2019-03-17] MEDS: PIPERACILLIN/TAZOB 3.375 GM 3.375 GM in DEXTROSE 5%-WATER - 50 ML IVPB SCH (07:32)
[2019-03-17 08:16] LABS: BILIRUBIN,TOTAL 0.8 mg/dl (0.2-1); CALCIUM 7.9 mg/dl (8.5-10); CREATININE 0.8 mg/dl (0.55-1.3); MAGNESIUM 1.7 mg/dL (1.8-2.4); POTASSIUM 3.6 mmol/L (3.5-5.1); TOT PROT 6.1 g/dl (6.4-8.2)
[2019-03-17 08:29] LABS: BASO % 0.1 % (0-2.0); EOS % 0.1 % (0-4.5); HEMATOCRIT 41.7 % (35.4-49); HEMOGLOBIN 14.2 GM/dl (11.7-16.9); LYMPH % 4.9 % (8-40); MCH 29.3 pg (25.7-33.7); MEAN CELL VOLUME 86.2 fl (80-96); MEAN PLT VOLUME 6.9 fl (7.5-11.1); NEUT % 85.9 % (42.8-82.8); PLATELET COUNT 321 K/MM3 (134-434); RBC 4.84 M/mm3 (4.00-5.60); RDW 12.3 % (11.9-15.9); WHITE BLOOD COUNT 8.7 K/mm3 (4.0-10.8)
[2019-03-17] MEDS ORDERED: MAGNESIUM SULF 50% (8.12 MEQ/2 ML-1 GM VIAL) IVPB ONE (09:19)
[2019-03-17] MEDS ORDERED: MAGNESIUM SULFATE IN WATER 2 GM/50 ML IVPB IVPB ONE (09:30)
[2019-03-17] MEDS: CEFTRIAXONE 2 GM-D5W BAG 2 GM/50 ML BAG IVPB SCH (09:50)
[2019-03-17] MEDS: SODIUM CHLORIDE 1,000 ML IV SCH (09:50)
--- NOTE | 2019-03-17 11:47 | PN ---
Documentation entered by Raquel King SCRIBE, acting as scribe for Kassi Davis NP. Physical Exam: SUBJECTIVE: Patient seen and examined at bedside. Patient complains of cough. Denies abdominal pain, nausea, vomiting, diarrhea. [place] a little tired this morning when he spiked a fever. OBJECTIVE: Vital Signs Period Temp Pulse Resp BP Sys/Liang Pulse Ox Last 24 Hr 98.5 F-102.9 F 77-92 16-19 134-168/58-84 94-97 GENERAL: Awake, alert, and fully oriented, in no acute distress. LUNGS: Breath sounds equal, clear to auscultation bilaterally. No wheezes, and no crackles. No accessory muscle use. HEART: Regular rate and rhythm, normal S1 and S2 ABDOMEN: RLQ drain, scant serosanguinous fluid in JUAN UPPER EXTREMITIES: 2+ pulses, warm, well-perfused. No cyanosis. No clubbing. No peripheral edema. LOWER EXTREMITIES: 2+ pulses, warm, well-perfused. No calf tenderness. No peripheral edema. NEUROLOGICAL: Cranial nerves II-XII intact. Normal speech. Steady gait. SKIN: Warm, dry, normal turgor Laboratory Results - last 24 hr 03/16/19 03/16/19 03/16/19 07:15 07:15 07:15 WBC 8.4 RBC 5.27 Hgb 15.3 Hct 46.2 D MCV 87.6 MCH 29.1 MCHC 33.2 RDW 12.8 Plt Count 346 MPV 6.9 L Absolute Neuts (auto) 7.1 Neutrophils % No Result Required. Neutrophils % (Manual) 76.0 Band Neutrophils % 2.0 Lymphocytes % No Result Required. Lymphocytes % (Manual) 16.0 Monocytes % (Manual) 6 Platelet Estimate Adequate Sodium 133 L Potassium 3.8 Chloride 100 Carbon Dioxide 23 Anion Gap 10 BUN 16.0 Creatinine 0.9 Est GFR (CKD-EPI)AfAm 103.51 Est GFR (CKD-EPI)NonAf 89.31 Random Glucose 124 H Lactic Acid 1.0 Calcium 8.6 Urine Color Urine Appearance Urine pH Urine Protein Urine Glucose (UA) Urine Ketones Urine Blood Urine Nitrite Urine Bilirubin Urine Urobilinogen Ur Leukocyte Esterase Urine RBC Urine WBC Ur Transition Epith Cell 03/16/19 10:28 WBC RBC Hgb Hct MCV MCH MCHC RDW Plt Count MPV Absolute Neuts (auto) Neutrophils % Neutrophils % (Manual) Band Neutrophils % Lymphocytes % Lymphocytes % (Manual) Monocytes % (Manual) Platelet Estimate Sodium Potassium Chloride Carbon Dioxide Anion Gap BUN Creatinine Est GFR (CKD-EPI)AfAm Est GFR (CKD-EPI)NonAf Random Glucose Lactic Acid Calcium Urine Color Yellow Urine Appearance Clear Urine pH 6.0 Urine Protein Trace Urine Glucose (UA) Negative Urine Ketones Negative Urine Blood Trace-intact Urine Nitrite Negative Urine Bilirubin Negative Urine Urobilinogen 0.2 Ur Leukocyte Esterase Negative Urine RBC 2-5 Urine WBC 0-2 Ur Transition Epith Cell Rare Active Medications Generic Name Dose Route Start Last Admin Trade Name Freq PRN Reason Stop Dose Admin Acetaminophen 650 mg 03/16/19 08:19 03/17/19 05:10 Tylenol - PO 650 mg Q6H PRN Administration FEVER Ceftriaxone Sodium 2 gm in 50 mls @ 100 mls/hr 03/16/19 08:15 03/16/19 08:35 Ceftriaxone 2 Gm-D5w Bag IVPB 100 mls/hr DAILY DINAH Administration Protocol Sodium Chloride 1,000 mls @ 125 mls/hr 03/16/19 08:15 03/16/19 11:45 Normal Saline - IV 125 mls/hr ASDIR DINAH Administration Microbiology 03/16/19 07:48 Blood - Peripheral Venous Blood Culture - Preliminary NO GROWTH OBTAINED AFTER 24 HOURS, INCUBATION TO CONTINUE FOR 4 DAYS. 03/16/19 07:48 Blood - Peripheral Venous Blood Culture - Preliminary NO GROWTH OBTAINED AFTER 24 HOURS, INCUBATION TO CONTINUE FOR 4 DAYS. 03/10/19 20:10 Blood - Peripheral Venous Blood Culture - Final NO GROWTH AFTER 5 DAYS INCUBATION 03/10/19 19:50 Blood - Peripheral Venous Blood Culture - Final NO GROWTH AFTER 5 DAYS INCUBATION 03/11/19 13:07 Abscess Gram Stain - Final 03/11/19 13:07 Abscess Body Fluid Culture - Final Streptococcus Anginosus Staphylococcus Coagulase Neg 03/11/19 13:07 Abscess Anaerobic Culture - Final NO ANAEROBES WERE ISOLATED 03/10/19 17:00 Urine - Urine Clean Catch Urine Culture - Final NO GROWTH OBTAINED ASSESSMENT/PLAN: 64 year-old male with no significant PMH admitted for periappendiceal abscess. Sepsis likely secondary to periappendiceal abscess/appendicitis --continues to spike fevers, Tm 102.9, no leukocytosis --repeat CT imaging shows abscess has drained but appendix remains inflamed; discussed with IR, drain to be removed today --culture (+) Strep anginosus and staph coag neg; continue ceftriaxone (day # 2); had received Zosyn x 4 days --03/10 blood and urine cultures negative; 03/16 blood and urine cultures NGTD --pathology: negative for malignant cells --Echo: read by reading ice carver as possible vegetation on aortic leaflet ; reviewed by Dr. Hawley who is following the patient, this is a calcification , not vegetation --03/17 CT chest unremarkable --no other identified source of infection other than appendix/abscess --surgery, IR, ID following Bilateral nephrolithiais Mild right-sided hydronephrosis --10mm calcification proximal right ureter, partially obstructing with minimal right-sided hydronephrosis --renal function stable, asymptomatic --outpatient urology consult FEN Fluids: PO intake adequate Electrolytes: replete as indicated Nutrition: regular diet DVT prophylaxis: TEDs, hold chemical prophylaxis for now Dispo: requires inpatient care. Full code. Visit type - Emergency Visit Emergency Visit: Yes ED Registration Date: 03/10/19 Care time: The patient presented to the Emergency Department on the above date and was hospitalized for further evaluation of their emergent condition. - New Patient This patient is new to me today: No - Critical Care Critical Care patient: No Kassi Davis NP: This documentation has been prepared by the Fernando lopez Maria, SCRIBE, under my direction and personally reviewed by me in its entirety. I confirm that the documentation accurately reflects all work, treatment, procedures, and medical decision making performed by me.
--- NOTE | 2019-03-17 15:13 | PN ---
Progress Note (short form) - Note Progress Note: surgery pt seen and examined. successfully treated of rlq abscess with IR drainage and tube removed. tolerating diet and refusing interval appendectomy. developed fever two days ago which pt is convinced is viral. tolerating diet without abd pain. abd- soft, nt, nd Plan- no appendicitis. bacteria was group a strep more consistent with skin lyly and not yared. unclear source of fever but pt may be right that this is viral. cont regular diet. would not remove appendix at this time. will need colonoscopy and should consider interval appendectomy. fevers per ID. will be available.
--- NOTE | 2019-03-17 15:26 | PN ---
Progress Note (short form) - Note Progress Note: s: no chest pain, palps, dizziness, dyspnea Current Medications Acetaminophen (Tylenol -) 650 mg PO Q6H PRN PRN Reason: FEVER Last Admin: 03/17/19 05:10 Dose: 650 mg Ceftriaxone Sodium (Ceftriaxone 2 Gm-D5w Bag) 2 gm in 50 mls @ 100 mls/hr IVPB DAILY DINAH; Protocol Last Admin: 03/17/19 09:50 Dose: 100 mls/hr Vital Signs Period Temp Pulse Resp BP Sys/Liang Pulse Ox Last 24 Hr 97.8 F-102.9 F 73-92 16-20 134-168/58-84 94-97 nad no jvd rrr s1s2 no mrg cta bl nl eff aao3 no le e/c/c abd nt nd pos bs no jaundice diaphoresis pos dp pt no carotid bruits ecg: sr nl intervals no ischemic changes echo 03/2019: per Dr. Hawley: nl lv/rv, no sig valve path, small nodular calcification on av, does not appear to be veg cxr: clear lungs a/p: 64 m no sig pmhx here with abd pain. abd abscess: -echo was reviewed by Dr. Hawley, no signs of endocarditis (aortic valve has calcium deposit, does not appear to be vegetation) -blood cx ngtd -abx per ID
[2019-03-18] MEDS: ACETAMINOPHEN 325 MG TABLET (FP) PO PRN (06:23)
[2019-03-18 06:53] VITALS: BP 147/72; PULSE 64; TEMP 97.5
[2019-03-18 08:02] LABS: BASO % 0.3 % (0-2.0); EOS % 1.7 % (0-4.5); HEMATOCRIT 43.7 % (35.4-49); HEMOGLOBIN 14.4 GM/dl (11.7-16.9); LYMPH % 14.4 % (8-40); MEAN CELL VOLUME 87.9 fl (80-96); MEAN PLT VOLUME 6.9 fl (7.5-11.1); NEUT % 71.6 % (42.8-82.8); PLATELET COUNT 307 K/MM3 (134-434); RBC 4.98 M/mm3 (4.00-5.60); RDW 12.6 % (11.9-15.9); WHITE BLOOD COUNT 5.5 K/mm3 (4.0-10.8)
[2019-03-18 08:27] LABS: BILIRUBIN,TOTAL 0.6 mg/dl (0.2-1); CALCIUM 8.1 mg/dl (8.5-10); CREATININE 0.7 mg/dl (0.55-1.3); MAGNESIUM 2.1 mg/dL (1.8-2.4); POTASSIUM 4.2 mmol/L (3.5-5.1); TOT PROT 6.1 g/dl (6.4-8.2)
--- NOTE | 2019-03-18 09:48 | PN ---
Progress Note, Physician History of Present Illness: AWAKE, ALERT IN BED OFFERS NO COMPLAINTS TEMPS DOWN AFEBRILE WBC WNL DENIES ABDOMINAL PAIN NO N/V + BM NO PHLEBITIS - Current Medication List Current Medications: Active Medications Acetaminophen (Tylenol -) 650 mg PO Q6H PRN PRN Reason: FEVER Last Admin: 03/18/19 06:23 Dose: 650 mg Ceftriaxone Sodium (Ceftriaxone 2 Gm-D5w Bag) 2 gm in 50 mls @ 100 mls/hr IVPB DAILY DINAH; Protocol Last Admin: 03/17/19 09:50 Dose: 100 mls/hr - Objective Vital Signs: Vital Signs Temperature 97.5 F L 03/18/19 06:00 Pulse Rate 64 03/18/19 06:00 Respiratory Rate 18 03/18/19 08:37 Blood Pressure 147/72 03/18/19 06:00 O2 Sat by Pulse Oximetry (%) 97 03/18/19 08:37 Constitutional: Yes: No Distress Eyes: Yes: Conjunctiva Clear Cardiovascular: Yes: Regular Rate and Rhythm, S1, S2 Respiratory: Yes: CTA Bilaterally Gastrointestinal: Yes: Normal Bowel Sounds, Soft. No: Tenderness Labs: CBC, BMP 03/18/19 07:33 03/18/19 07:33 INR, PTT INR 1.39 (0.82-1.09) H 03/10/19 17:30 Assessment/Plan NEW ONSET FEVER ? SOURCE TEMPS DOWN WORKUP UNREVEALING S/P PERCUTANEOUS DRAINAGE PERIAPPENDICEAL COLLECTION DRAIN REMOVED REPEAT BC NO GROWTH REPEAT CT ABDOMEN /PELVIS COLLECTION DECREASED NO NEW COLLECTION SUBSTITUTE PO AUGMENTIN 875 MG PO BID X 7D OUTPATIENT FOLLOW [facility]
--- NOTE | 2019-03-18 09:54 | DS ---
Physical Exam: SUBJECTIVE: Patient seen and examined OBJECTIVE: Vital Signs Period Temp Pulse Resp BP Sys/Liang Pulse Ox Last 24 Hr 97.5 F-98.6 F 64-77 18-20 132-150/69-78 95-97 PHYSICAL EXAM GENERAL: Awake, alert, and fully oriented, in no acute distress. LUNGS: Breath sounds equal, clear to auscultation bilaterally. No wheezes, and no crackles. No accessory muscle use. HEART: Regular rate and rhythm, normal S1 and S2 ABDOMEN: Drain removed; dressing c/d/i UPPER EXTREMITIES: 2+ pulses, warm, well-perfused. No cyanosis. No clubbing. No peripheral edema. LOWER EXTREMITIES: 2+ pulses, warm, well-perfused. No calf tenderness. No peripheral edema. NEUROLOGICAL: Cranial nerves II-XII intact. Normal speech. Steady gait. SKIN: Warm, dry, normal turgor Laboratory Results - last 24 hr 03/18/19 03/18/19 07:33 07:33 WBC 5.5 RBC 4.98 Hgb 14.4 Hct 43.7 MCV 87.9 MCH 29.0 MCHC 33.0 RDW 12.6 Plt Count 307 MPV 6.9 L Absolute Neuts (auto) 3.9 Neutrophils % 71.6 Lymphocytes % 14.4 D Monocytes % 12.0 H Eosinophils % 1.7 D Basophils % 0.3 Sodium 136 Potassium 4.2 Chloride 104 Carbon Dioxide 26 Anion Gap 6 L BUN 18.0 Creatinine 0.7 Est GFR (CKD-EPI)AfAm 114.78 Est GFR (CKD-EPI)NonAf 99.03 Random Glucose 90 Calcium 8.1 L Magnesium 2.1 Total Bilirubin 0.6 AST 31 ALT 38 Alkaline Phosphatase 68 Total Protein 6.1 L Albumin 3.0 L HOSPITAL COURSE: Date of Admission:03/10/19 Date of Discharge: 03/18/19 Pre hospital course 64 year-old male with no significant PMH presented to the ED for evaluation of intermittent right lower quadrant abdominal pain x 1 week. Some constipation but had normal BM this morning. Denies fever, sweats, chills, no nausea, vomiting, or diarrhea. Went to see his PCP earlier today who sent him for a CT scan. The scan showed RLQ inflammation, possible ruptured appendix with organizing abscess. Patient was referred to the ED for further evaluation. ER course (1) afebrile, no leukocytosis (2) CTAP: developing periappendiceal abscess/acute appendicitis (3) Zosyn x 1 Subsequent hospital course 64 year-old male with no significant PMH admitted for likely periappendiceal abscess/acute appendicitis. Sepsis likely secondary to periappendiceal abscess/appendicitis --intermittent fever, no leukocytosis --admitted on 03/10; on 03/11 pigtail catheter placed, 8cc pus aspirated which grew Strep anginosus and Staph coag neg; treated initially with Zosyn x 4 days, then switched to ceftriaxone; discharged on augmentin --pathology: negative for malignant cells --appendix remained enlarged, no surgical intervention during this hospital stay; plan is for patient to follow up with ID in one week, GI in six weeks, and surgery in 6 weeks Bilateral nephrolithiais Mild right-sided hydronephrosis --10mm calcification proximal right ureter, partially obstructing with minimal right-sided hydronephrosis --renal function stable, asymptomatic --outpatient urology consult Minutes to complete discharge: 35 Discharge Summary Problems reviewed: Yes Reason For Visit: CALCULUS OF RIGHT KIDNEY Current Active Problems Abdominal abscess (Acute) Condition: Stable - Instructions Diet, Activity, Other Instructions: A prescription has been sent to your pharmacy for augmentin which is an antibiotic. Take this medication as directed. You should follow up with Dr. Castellon in one week. His contact information is enclosed. Referrals: Michael Castellon MD [Staff Physician] - 1 Week John Paul Jacques MD [Staff Physician] - 1 Week Disposition: HOME - Home Medications Comprehensive Discharge Medication List: Ambulatory Orders NK [No Known Home Medication] 03/10/19 This patient is new to me today: No Emergency Visit: Yes ED Registration Date: 03/10/19 Care time: The patient presented to the Emergency Department on the above date and was hospitalized for further evaluation of their emergent condition. Critical Care patient: No - Discharge Referral Referred to [facility] Med [facility] No
[2019-03-18] MEDS ORDERED: AMOX TR/POT CLAV 500MG/125MG TABLETS (FP) PO SCH (10:00)
== END 2019-03-18 13:05 | disposition home or self-care (01) | DRG 229 ==
LOC: FER 16:20 → FM/S 18:43 → JSAMEDAYSX 03-11 10:38 → FM/S 03-11 16:19
PROVIDERS: ADMIT Internal Medicine; ATTEND Nurse Practitioner Acute Care
PROC: 0W9G30Z Drainage of Peritoneal Cavity with Drainage Device, Percutaneous Approach (ICD-10-PCS; principal; 2019-03-11)
PROC: 0WPG30Z Removal of Drainage Device from Peritoneal Cavity, Percutaneous Approach (ICD-10-PCS; 2019-03-17)
DX: K35.33 Acute appendicitis with perforation, localized peritonitis, and gangrene, with abscess (principal); R10.31 Right lower quadrant pain; A40.8 Other streptococcal sepsis; N13.2 Hydronephrosis with renal and ureteral calculous obstruction; R50.9 Fever, unspecified
CPT/HCPCS: 10030; 36415; 71045-TC-FY; 71250-TC; 74177-TC; 76098-TC-FY; 76380-TC; 80048; 80053; 81003; 81015; 82962; 83605; 83735; 85025; 85610; 85730; 86850; 86900; 86901; 87040; 87070; 87075; 87086; 87205; 87899; 88108; 88305-TC; 93005; 93306-TC; 99283-25; C1729; C1769; J0131; J7030; Q9967